=== PATIENT | male | born 1975 | race Two or more races ===

== ENCOUNTER 2024-10-20 16:09 | Emergency (ER) | payer MEDICARE ==
--- NOTE | 2024-10-20 19:07 | ED ---
General Adult HPI - General Chief complaint: Psychiatric Symptoms Stated complaint: Psych Eval Time Seen by Provider: 10/20/24 16:25 Source: patient, RN notes reviewed Mode of arrival: ambulatory Limitations: no limitations - History of Present Illness Initial comments: 48-year-old male presents to the emergency department for medication management. Patient states that he has recently moved to the area and has had difficulty getting his medications. He has been out of some of them for around 1 week. He does note that he has some at the pharmacy but he is unable to afford them. He denies any suicidal ideation. He does report that he has agitated because of being out of his medications. - Related Data Home Medications Medication Instructions Recorded Confirmed Aspirin EC [Ecotrin Low Dose] 81 mg PO DAILY 10/20/24 10/22/24 Rivaroxaban [Xarelto] 20 mg PO DAILY 10/20/24 10/22/24 Atorvastatin [Lipitor] 20 mg PO DAILY 10/22/24 10/22/24 Previous Rx's Medication Instructions Recorded Metoprolol Succinate (ER) [Toprol 25 mg PO DAILY #14 tab 10/20/24 XL] PARoxetine HCL [Paxil] 40 mg PO DAILY #14 tab 10/20/24 lisinopriL [Zestril] 2.5 mg PO DAILY #14 tab 10/20/24 ARIPiprazole [Abilify] 10 mg PO HS 30 Days #30 tab 10/26/24 Nicotine 14Mg/24Hr Patch [Habitrol] 1 patch TRANSDERM DAILY patch 10/26/24 PARoxetine [Paxil] 40 mg PO DAILY 30 Days #60 tab 10/26/24 Pantoprazole [Protonix] 40 mg PO AC-[id number] tab 10/26/24 traZODone HCL [Desyrel] 100 mg PO HS 30 Days #30 tab 10/26/24 Allergies Allergy/AdvReac Type Severity Reaction Status Date / Time No Known Allergies Allergy Verified 10/22/24 13:37 Review of Systems ROS Statement: Those systems with pertinent positive or pertinent negative responses have been documented in the HPI. ROS Other: All systems not noted in ROS Statement are negative. Past Medical History Past Medical History: Hypertension History of Any Multi-Drug Resistant Organisms: None Reported Past Psychological History: ADD/ADHD, Bipolar, Schizoaffective Disorder Smoking Status: Vaper Past Alcohol Use History: None Reported Past Drug Use History: Marijuana General Exam Limitations: no limitations General appearance: alert, in no apparent distress Head exam: Present: atraumatic, normocephalic, normal inspection Eye exam: Present: normal appearance, PERRL, EOMI. Absent: scleral icterus, conjunctival injection, periorbital swelling Neck exam: Present: normal inspection. Absent: tenderness, meningismus, lymphadenopathy Respiratory exam: Present: normal lung sounds bilaterally. Absent: respiratory distress, wheezes, rales, rhonchi, stridor Cardiovascular Exam: Present: regular rate, normal rhythm, normal heart sounds. Absent: systolic murmur, diastolic murmur, rubs, gallop, clicks GI/Abdominal exam: Present: soft. Absent: distended, tenderness, guarding, rebound, rigid Extremities exam: Present: normal inspection, full ROM, normal capillary refill. Absent: tenderness, pedal edema, joint swelling, calf tenderness Neurological exam: Present: alert, oriented X3 Psychiatric exam: Present: normal affect, normal mood Skin exam: Present: warm, dry, intact, normal color. Absent: rash Course Vital Signs 10/20/24 10/20/24 16:14 20:08 Temperature 98.0 F 98.2 F Pulse Rate 83 71 Respiratory 16 17 Rate Blood Pressure 125/79 126/89 O2 Sat by Pulse 97 98 Oximetry Medical Decision Making - Medical Decision Making Was pt. sent in by a medical professional or institution (JULIAN Weber, [employer], urgent care, hospital, or jail...) When possible be specific @ -No Did you speak to anyone other than the patient for history (EMS, parent, family, police, friend...)? What history was obtained from this source @ -No Did you review nursing and triage notes (agree or disagree)? Why? @ -I reviewed and agree with nursing and triage notes Were old charts reviewed (outside hosp., previous admission, EMS record, old EKG, old radiological studies, urgent care reports/EKG's, jail records)? Report findings @ -No old charts were reviewed Differential Diagnosis (chest pain, altered mental status, abdominal pain women, abdominal pain men, vaginal bleeding, weakness, fever, dyspnea, syncope, headache, dizziness, GI bleed, back pain, seizure, CVA, palpatations, mental health, musculoskeletal)? @ -Differential Mental Health Depression, anxiety, bipolar, psychosis, schizophrenia, borderline personality, situational depression, adjustment disorder, behavioral disorder, brain tumor, malingering, substance abuse, encephalopathy, medication reaction, dementia, hypothyroidism, degenerative neurologic disorder, lupus.... This is not meant to be all-inclusive list EKG interpreted by me (3pts min.). @ -None X-rays interpreted by me (1pt min.). @ -None done CT interpreted by me (1pt min.). @ -None done U/S interpreted by me (1pt. min.). @ -None done What testing was considered but not performed or refused? (CT, X-rays, U/S, labs)? Why? @ -None What meds were considered but not given or refused? Why? @ -None Did you discuss the management of the patient with other professionals (professionals i.e. , PA, CLOTH CALENDER, lab, RT, psych nurse, social media community manager, tea and spice supervisor, teacher, occupational medicine officer, watch caser)? Give summary @ -Discussed case with case management regarding efforts to get the patient his medication Discussed case with EPS to evaluate the patient Was smoking cessation discussed for >3mins.? @ -No Was critical care preformed (if so, how long)? @ -No Were there social determinants of health that impacted care today? How? (Homelessness, low income, unemployed, alcoholism, drug addiction, transportation, low edu. Level, literacy, decrease access to med. care, group home, rehab)? @ -No Was there de-escalation of care discussed even if they declined (Discuss DNR or withdrawal of care, Hospice)? DNR status @ -No What co-morbidities impacted this encounter? (DM, HTN, Smoking, COPD, CAD, Cancer, CVA, ARF, Chemo, Hep., AIDS, mental health diagnosis, sleep apnea, morbid obesity)? @ -None Was patient admitted / discharged? Hospital course, mention meds given and route, prescriptions, significant lab abnormalities, going to OR and other pertinent info. @ -Discharge. Patient presents emergency department for medication management. I did send the patient medications to the pharmacy. He was given a dose of some of the psychiatric medications and is Xarelto in the emergency department. Patient was evaluated by EPS and a safety plan was performed. Patient will be discharged. He is understanding agreeable this plan. Patient stable at time of discharge. Case discussed with Dr. Larson Undiagnosed new problem with uncertain prognosis? @ -No Drug Therapy requiring intensive monitoring for toxicity (Heparin, Nitro, Insulin, Cardizem)? @ -No Were any procedures done? @ -No Diagnosis/symptom? @ -Medication management Acute, or Chronic, or Acute on Chronic? @ -Acute Uncomplicated (without systemic symptoms) or Complicated (systemic symptoms)? @ -Uncomplicated Side effects of treatment? @ -No Exacerbation, Progression, or Severe Exacerbation? @ -No Poses a threat to life or bodily function? How? (Chest pain, [place], [place], pneumonia, PE, COPD, DKA, ARF, appy, cholecystitis, CVA, Diverticulitis, Homicidal, Suicidal, threat to staff... and all critical care pts) @ -No Disposition Clinical Impression: Medication management Disposition: HOME SELF-CARE Condition: Stable Additional Instructions: Please follow up with [facility]. Return to the emergency department for new or worsening symptoms. Prescriptions: PARoxetine HCL [Paxil] 40 mg PO DAILY #14 tab Metoprolol Succinate (ER) [Toprol XL] 25 mg PO DAILY #14 tab lisinopriL [Zestril] 2.5 mg PO DAILY #14 tab Is patient prescribed a controlled substance at d/c from ED?: No Referrals: None,Stated [Primary Care Provider] - 1-2 days
[2024-10-20] MEDS: PARoxetine 20 MG TAB PO STA (19:32)
[2024-10-20] MEDS: LORazepam 1 MG TAB PO STA (19:32)
[2024-10-20] MEDS: ATORVASTATIN 20 MG TAB PO STA (19:33)
[2024-10-20 20:14] VITALS: BP 126/89; PULSE 71; RESP 17; TEMP 98.2
== END 2024-10-20 20:14 | disposition home or self-care (01) ==
LOC: EC 16:09
DX: Z76.0 Encounter for issue of repeat prescription (principal); F17.290 Nicotine dependence, other tobacco product, uncomplicated; Z91.141 Patient's other noncompliance with medication regimen due to financial hardship
CPT/HCPCS: 82075; 99284

== ENCOUNTER 2024-10-22 10:58 | Inpatient (IN) | payer MEDICARE ==
--- NOTE | 2024-10-22 11:57 | ED ---
General Adult HPI - General Chief complaint: Psychiatric Symptoms Stated complaint: Mental health Time Seen by Provider: 10/22/24 11:10 Source: patient Mode of arrival: ambulatory Limitations: no limitations - History of Present Illness Initial comments: Dictation was produced using [employer] dictation software. please excuse any grammatical, word or spelling errors. Chief Complaint: 48-year-old male presents emergency department hallucinations History of Present Illness: Patient is 48-year-old male with multiple comorbidities. States that due to insurance issues he has not had a co-pay for his medications. Patient states that he is unable to afford these things. States that he takes psychiatric medications and his hallucinations are getting worse since he did not fill his medications recently. Denies any physical complaints. The ROS documented in this emergency department record has been reviewed and confirmed by me. Those systems with pertinent positive or negative responses have been documented in the HPI. All other systems are other negative and/or noncontributory. - Related Data Home Medications Medication Instructions Recorded Confirmed Aspirin EC [Ecotrin Low Dose] 81 mg PO DAILY 10/20/24 10/22/24 Folic Acid 1 mg PO DAILY 10/20/24 10/22/24 LORazepam [Ativan] 1 mg PO DAILY PRN 10/20/24 10/22/24 Multivitamins, Thera [Multivitamin 1 tab PO DAILY 10/20/24 10/22/24 (formulary)] Rivaroxaban [Xarelto] 20 mg PO DAILY 10/20/24 10/22/24 traZODone HCL [Desyrel] 100 mg PO HS 10/20/24 10/22/24 ARIPiprazole [Abilify] 10 mg PO DAILY 10/22/24 10/22/24 Atorvastatin [Lipitor] 20 mg PO DAILY 10/22/24 10/22/24 Brexpiprazole [Rexulti] 0.5 mg PO DIRECTED 10/22/24 10/22/24 Thiamine HCl [Vitamin B-1] 100 mg PO DAILY 10/22/24 10/22/24 Previous Rx's Medication Instructions Recorded Brexpiprazole [Rexulti] 0.25 mg PO DAILY #14 tablet 10/20/24 Metoprolol Succinate (ER) [Toprol 25 mg PO DAILY #14 tab 10/20/24 Xl] PARoxetine HCL [Paxil] 40 mg PO DAILY #14 tab 10/20/24 lisinopriL [Zestril] 2.5 mg PO DAILY #14 tab 10/20/24 Allergies Allergy/AdvReac Type Severity Reaction Status Date / Time No Known Allergies Allergy Verified 10/22/24 13:37 Review of Systems ROS Statement: Those systems with pertinent positive or pertinent negative responses have been documented in the HPI. ROS Other: All systems not noted in ROS Statement are negative. Past Medical History Past Medical History: Hypertension History of Any Multi-Drug Resistant Organisms: None Reported Past Surgical History: No Surgical Hx Reported Past Psychological History: ADD/ADHD, Bipolar, Schizoaffective Disorder Smoking Status: Vaper Past Alcohol Use History: None Reported Past Drug Use History: Marijuana General Exam - General Exam Comments Initial Comments: General: Well-appearing, nontoxic, no acute distress. Head: Normocephalic, atraumatic Eyes: PERRLA, EOMI ENT: Airway patent Chest: Nonlabored breathing Skin: No visual rash, normal skin tone Neuro: Alert and oriented 3 Musculoskeletal: No gross abnormalities Limitations: no limitations Course Vital Signs 10/22/24 11:03 Temperature 97.9 F Pulse Rate 68 Respiratory 18 Rate Blood Pressure 149/90 O2 Sat by Pulse 100 Oximetry Medical Decision Making - Medical Decision Making Was pt. sent in by a medical professional or institution (JULIAN Weber, [employer], urgent care, hospital, or alf...) When possible be specific @ -No Did you speak to anyone other than the patient for history (EMS, parent, family, police, friend...)? What history was obtained from this source @ -No Did you review nursing and triage notes (agree or disagree)? Why? @ -I reviewed and agree with nursing and triage notes Were old charts reviewed (outside hosp., previous admission, EMS record, old EK G, old radiological studies, urgent care reports/EKG's, alf records)? Report findings @ -No old charts were reviewed Differential Diagnosis (chest pain, altered mental status, abdominal pain women, abdominal pain men, vaginal bleeding, musculoskeletal, weakness, fever, dyspnea, syncope, headache, dizziness, GI bleed, back pain, seizure, CVA, palpatations, mental health)? @ -Differential Mental Health: Depression, anxiety, bipolar, psychosis, schizophrenia, borderline personality, situational depression, adjustment disorder, behavioral disorder, brain tumor, malingering, substance abuse, encephalopathy, medication reaction, dementia, hypothyroidism, degenerative neurologic disorder, lupus.... This is not meant to be all-inclusive list EKG interpreted by me (3pts min.). @ -None done X-rays interpreted by me (1pt min.). @ -None done CT interpreted by me (1pt min.). @ -None done U/S interpreted by me (1pt. min.). @ -None done What testing was considered but not performed or refused? (CT, X-rays, U/S, labs)? Why? @ -None What meds were considered but not given or refused? Why? @ -None Was smoking cessation discussed for >3mins.? @ -No Were there social determinants of health that impacted care today? How? (Homelessness, low income, unemployed, alcoholism, drug addiction, transportation, low edu. Level, literacy, decrease access to med. care, half-way, rehab)? @ -No Was there de-escalation of care discussed even if they declined (Discuss DNR or withdrawal of care, Hospice)? DNR status @ -No What co-morbidities impacted this encounter? (DM, HTN, Smoking, COPD, CAD, Cancer, CVA, ARF, Chemo, Hep., AIDS, mental health diagnosis, sleep apnea, morbid obesity)? @ -None Was patient admitted / discharged? Hospital course, mention meds given and route, prescriptions, significant lab abnormalities, going to OR and other pertinent info. @ -48-year-old male presents emergency department for hallucinations has history of psychiatry history. States that he was unable to take his medications. Vital signs stable. Patient medically cleared for EPS evaluation. EPS evaluate patient will be admitted to inpatient psych Did you discuss the management of the patient with other professionals (professionals i.e. , PA, [employer], lab, RT, psych nurse, protective services social worker, measurement and sensing technician, teacher, jailer/training officer, case fitter)? Give summary @ -See above Was critical care preformed (if so, how long)? @ -No Undiagnosed new problem with uncertain prognosis? @ -No Drug Therapy requiring intensive monitoring for toxicity (Heparin, Nitro, Insulin, Cardizem)? @ -No Were any procedures done? @ -No Diagnosis/symptom? Acute, or Chronic, or Acute on Chronic? Uncomplicated (without systemic symptoms) or Complicated (systemic symptoms)? @ -Hallucinations Side effects of treatment? @ -No Exacerbation, Progression, or Severe Exacerbation? @ -No Poses a threat to life or bodily function? How? (Chest pain, USA, [place], pneumonia, PE, COPD, DKA, ARF, appy, cholecystitis, CVA, Diverticulitis, Homicidal, Suicidal, threat to staff... and all critical care pts) @ -yes Disposition Clinical Impression: Hallucination Disposition: TRANSFER TO PSYCH HOSP/UNIT Condition: Fair Referrals: Sarita De La Torre MD [Primary Care Provider] - 1-2 days
[2024-10-22] MEDS ORDERED: MAG HYDROX/AL HYDROX/SIMETH 355 ML BOTTLE PO PRN (19:37)
[2024-10-22] MEDS ORDERED: ACETAMINOPHEN TAB 325 MG TAB PO PRN (19:37)
[2024-10-22] MEDS ORDERED: HALOPERIDOL LACTATE 5 MG/ML 1 ML VIAL IM PRN (19:37)
[2024-10-22] MEDS: NICOTINE 14MG/24HR PATCH TRANSDERM SCH (19:59)
[2024-10-22] MEDS: METOPROLOL SUCCINATE (ER) 25 MG TAB.ER.24H PO SCH (20:52)
[2024-10-22] MEDS: ASPIRIN 81 MG PO SCH (20:52)
[2024-10-22] MEDS: ATORVASTATIN 20 MG TAB PO SCH (20:53)
[2024-10-22] MEDS: RIVAROXABAN 20 MG TAB PO SCH (20:53)
[2024-10-23] MEDS: THIAMINE 100 MG TAB PO SCH (08:42)
[2024-10-23] MEDS: FOLIC ACID 1 MG TAB PO SCH (08:42)
[2024-10-23] MEDS: MULTIVITAMINS, THERA 1 EACH TAB PO SCH (08:42)
[2024-10-23 09:27] LABS: Basophils # (A) 0.03 10*3/uL (0.00-0.10); Basophils % (A) 0.7 %; Eosinophils # (A) 0.15 10*3/uL (0.04-0.35); Eosinophils % (A) 3.7 %; HCT 44.4 % (39.6-50.0); HGB 14.8 g/dL (13.0-17.0); Immature Platelet Fraction 6.7 % (1.1-6.1); Lymphocytes # (A) 1.14 10*3/uL (0.90-5.00); Lymphocytes % (A) 27.8 %; MCH 34.8 pg (27.0-32.0); MCHC 33.3 g/dL (32.0-37.0); MCV 104.5 fL (80.0-97.0); Monocytes # (A) 0.24 10*3/uL (0.20-1.00); Monocytes % (A) 5.9 %; Neutrophils # (A) 2.54 10*3/uL (1.80-7.70); Neutrophils % (A) 61.9 %; RBC 4.25 10*6/uL (4.40-5.60); RDW 13.8 % (11.5-14.5); WBC 4.10 10*3/uL (4.50-10.00)
[2024-10-23 09:40] LABS: ALT 120 U/L (4-49); AST 153 U/L (17-59); African American GFR (CKD) >90 (>60 ml/min/1.73 sqM); Albumin 4.4 g/dL (3.5-5.0); Alkaline Phosphatase 95 U/L (38-126); Anion Gap 10 mmol/L; Blood Urea Nitrogen 12 mg/dL (9-20); Calcium 9.6 mg/dL (8.4-10.2); Carbon Dioxide 27 mmol/L (22-30); Chloride 105 mmol/L (98-107); Glucose 136 mg/dL (74-99); Non-African American GFR(CKD) >90 (>60 ml/min/1.73 sqM); Potassium 4.6 mmol/L (3.5-5.1); Sodium 142 mmol/L (137-145); Total Protein 8.3 g/dL (6.3-8.2)
[2024-10-23 10:32] LABS: Platelet Count 95 10*3/uL (140-440); RBC Morphology Normal
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
[2024-10-23] MEDS: PANTOPRAZOLE 40 MG TABLET PO SCH (11:01)
[2024-10-23] MEDS: PARoxetine 20 MG TAB PO SCH (11:01)
--- NOTE | 2024-10-23 13:12 | P.MDCNMH ---
History of Present Illness H&P Date: 10/23/24 This is a pleasant 48-year-old male who presented to the emergency department with ER reporting hallucinations. Patient reports he has been having increasing auditory hallucinations while being off of medications. Patient reports he was living in [place] and recently moved up here approximately 1 week ago has an appointment with Dr. Demetrius Fofana to establish although has not seen her previously yet. Patient reports he had his medications transferred up here to a [facility] and the co-pays were extremely high and unable to afford. Patient reports he has a past medical history of factor V Leyden deficiency, hypertension, previous DVTs, ADD/ADHD, bipolar, schizoaffective disorder. Patient reports to vaping with tobacco, denies alcohol use and does admit to previous use of marijuana. Reviewing the chart patient's labs reveal a WBC of 4.1, hemoglobin 14.8, platelets low at 95, immature platelet fraction is 6.7 which is elevated, sodium 142, potassium 4.6, BUN 12 with a creatinine of 0.84, random glucose is 136, total bili is 1.4, AST 153, ALT 120, alk phos normal at 95, cholesterol panel was obtained and pending, TSH was low at 0.054 although free T4 is normal at 0.98, COVID testing was not detected. Patient was admitted voluntarily to [facility] for further psychiatric evaluation. Patient to work with case management regarding medications and [facility] follow-up outpatient. Patient reports he has been with [facility] his entire life since he was 3 years old. Patient reports he has been seeing by psychiatry and has been started on medications. Will resume appropriate home medications. Patient does take Xarelto along with aspirin chronically. REVIEW OF SYSTEMS: CONSTITUTIONAL: No fever, no malaise, no fatigue. HEENT: No recent visual problems or hearing problems. Denied any sore throat. CARDIOVASCULAR: No chest pain, orthopnea, PND, no palpitations, no syncope. PULMONARY: No shortness of breath, no cough, no hemoptysis. GASTROINTESTINAL: No diarrhea, no nausea, no vomiting, no abdominal pain. NEUROLOGICAL: No headaches, no weakness, no numbness. HEMATOLOGICAL: Denies any bleeding or petechiae. GENITOURINARY: Denies any burning micturition, frequency, or urgency. MUSCULOSKELETAL/RHEUMATOLOGICAL: Denies any joint pain, swelling, or any muscle pain. ENDOCRINE: Denies any polyuria or polydipsia. The rest of the 14-point review of systems is negative. PHYSICAL EXAMINATION: GENERAL: The patient is alert and oriented x3, not in any acute distress. Well developed, well nourished. HEENT: Pupils are round and equally reacting to light. EOMI. No scleral icterus. No conjunctival pallor. Normocephalic, atraumatic. No pharyngeal erythema. No thyromegaly. CARDIOVASCULAR: S1 and S2 present. No murmurs, rubs, or gallops. PULMONARY: Chest is clear to auscultation, no wheezing or crackles. ABDOMEN: Soft, thin, nontender, nondistended, normoactive bowel sounds. No palpable organomegaly. MUSCULOSKELETAL: No joint swelling or deformity. EXTREMITIES: No cyanosis, clubbing, or pedal edema. NEUROLOGICAL: Gross neurological examination did not reveal any focal deficits. Gait steady on exam SKIN: No rashes. Assessment: Auditory hallucinations, patient has been out of medications due to high cost of co-pays and recently moved from [place] to [place] History of factor V Leyden deficiency History of previous DVTs Hypertension Vaping with tobacco THC use History of ADD/ADHD/bipolar/schizoaffective disorder Transaminitis, patient reports history of alcohol abuse Full code Plan: Patient was voluntarily admitted to [facility] for hallucinations and has been out of medication follows with [facility] outpatient although was living in [place] and recently moved up here to [place] 1 week ago. Patient does have a follow-up appointment he reports with Dr. Demetrius Fofana to establish in the outpatient setting. Patient to follow-up with case management regarding co-pays for medications as he had his medications transferred to [facility] here although the co-pays were too much for him to afford to get his medications. Patient has been out of his medications for approximately 1 week Instructed and encouraged the patient to attend group therapy sessions Recommend medication compliance and follow-up with psychiatry Thank you kindly for this consultation. Please do not hesitate to contact us with any questions or concerns The impression and plan of care has been dictated by Jane Haro, Nurse Practitioner as directed. Dr. Lisha MD I have performed a history and examination and MDM of this patient, discussed the same with the dictator, and agree with the dictator's assessment and plan as written ,documented as a scribe. Based on total visit time, I have performed more than 50% of the visit. Past Medical History Past Medical History: Deep Vein Thrombosis (DVT), Hypertension Additional Past Medical History / Comment(s): Positive Factor 5 Leiden History of Any Multi-Drug Resistant Organisms: None Reported Past Surgical History: No Surgical Hx Reported Past Psychological History: ADD/ADHD, Bipolar, Schizoaffective Disorder Smoking Status: Current every day smoker, Vaper Past Alcohol Use History: None Reported Past Drug Use History: None Reported, Marijuana Medications and Allergies Home Medications Medication Instructions Recorded Confirmed Type Aspirin EC [Ecotrin Low Dose] 81 mg PO DAILY 10/20/24 10/22/24 History Brexpiprazole [Rexulti] 0.25 mg PO DAILY #14 tablet 10/20/24 10/22/24 Rx Folic Acid 1 mg PO DAILY 10/20/24 10/22/24 History LORazepam [Ativan] 1 mg PO DAILY PRN 10/20/24 10/22/24 History Metoprolol Succinate (ER) [Toprol 25 mg PO DAILY #14 tab 10/20/24 10/22/24 Rx Xl] Multivitamins, Thera [Multivitamin 1 tab PO DAILY 10/20/24 10/22/24 History (formulary)] PARoxetine HCL [Paxil] 40 mg PO DAILY #14 tab 10/20/24 10/22/24 Rx Rivaroxaban [Xarelto] 20 mg PO DAILY 10/20/24 10/22/24 History lisinopriL [Zestril] 2.5 mg PO DAILY #14 tab 10/20/24 10/22/24 Rx traZODone HCL [Desyrel] 100 mg PO HS 10/20/24 10/22/24 History ARIPiprazole [Abilify] 10 mg PO DAILY 10/22/24 10/22/24 History Atorvastatin [Lipitor] 20 mg PO DAILY 10/22/24 10/22/24 History Brexpiprazole [Rexulti] 0.5 mg PO DIRECTED 10/22/24 10/22/24 History Thiamine HCl [Vitamin B-1] 100 mg PO DAILY 10/22/24 10/22/24 History Allergies Allergy/AdvReac Type Severity Reaction Status Date / Time No Known Allergies Allergy Verified 10/22/24 13:37 Physical Exam Vitals: Vital Signs Temp Pulse Pulse Resp BP BP Pulse Ox 10/23/24 09:03 97.2 F L 62 20 114/75 98 10/23/24 06:20 97.2 F L 50 L 18 116/78 98 10/22/24 20:01 98.0 F 70 18 115/79 98 10/22/24 16:12 71 20 112/72 97 10/22/24 11:03 97.9 F 68 18 149/90 100 Intake and Output 10/22/24 10/23/24 10/23/24 22:59 06:59 14:59 Other: Weight 82.6 kg Cranial Nerve Examination - Cranial Nerves Cranial Nerve I- Olfactory: Intact Cranial Nerve II- Optic: Intact Cranial Nerve III- Oculomotor: Intact Cranial Nerve IV- Trochlear: Intact Cranial Nerve V- Trigeminal: Intact Cranial Nerve - Abducens: Intact Cranial Nerve VII- Facial: Intact Cranial Nerve VIII- Auditory: Intact Cranial Nerve IX- Glossopharyngeal: Intact Cranial Nerve X- Vagus: Intact Cranial Nerve XI- Accessory: Intact Cranial Nerve XII- Hypoglossal: Intact Results CBC & Chem 7: 10/23/24 08:26 10/23/24 08:26 Labs: Abnormal Lab Results - Last 24 Hours (Table) 10/23/24 10/23/24 Range/Units 08:26 08:26 WBC 4.10 L (4.50-10.00) 10*3/uL RBC 4.25 L (4.40-5.60) 10*6/uL MCV 104.5 H (80.0-97.0) fL MCH 34.8 H (27.0-32.0) pg Plt Count 95 L (140-440) 10*3/uL Immature Plt Fraction 6.7 H (1.1-6.1) % Glucose 136 H (74-99) mg/dL Total Bilirubin 1.4 H (0.2-1.3) mg/dL AST 153 H (17-59) U/L ALT 120 H (4-49) U/L Total Protein 8.3 H (6.3-8.2) g/dL TSH 0.054 L (0.465-4.680) mIU/L
[2024-10-23 13:35] LABS: Cholesterol 141.00 mg/dL (0.00-200.00); HDL Cholesterol 41.60 mg/dL (40.00-60.00); LDL Cholesterol,Calculated 75.6 mg/dL (0.0-131.0); Triglycerides 119.00 mg/dL (0.00-149.00); VLDL Calculation 23.80 mg/dL (5.00-40.00)
[2024-10-24] MEDS: LORazepam 1 MG TAB PO PRN (08:53)
[2024-10-24 09:11] LABS: Bilirubin,Urine Negative (Negative); Blood,Urine Negative (Negative); Color,Urine Yellow; Glucose,Urine (UA) Negative (Negative); Ketones,Urine Negative (Negative); Leukocyte Esterase,Urine Negative (Negative); Nitrite,Urine Negative (Negative); PH, Urine 6.0 (5.0-8.0); Protein,Urine Negative (Negative); Specific Gravity,Urine 1.021 (1.001-1.035); Urobilinogen,Urine 2.0 mg/dL (<2.0)
[2024-10-24 13:16] LABS: Urine Alcohol Negative (Negative); Urine Barbiturate Negative (Negative)
--- NOTE | 2024-10-24 13:29 | P.PN ---
Progress Note - Text Progress Note Date: 10/24/24 Dictation was produced using [employer] dictation software. Please excuse any grammatical, word or spelling errors. Interval history: Patient was seen in the hallway and was directable and agreeable to speak with the software writer in the office for psychiatric follow-up. The patient states that he is feeling anxious and the voices are higher than usual, states it is like a whispers of his mom voice. He rated anxiety at 7/10. He denied any current depression. He reported that his mind is racing, and is anxious about being in a new town. He denied and current SI/HI or self harm. He denied any VH. States that he slept well last night, it is reported that he slept through the night and admitted to good appetite. He has been taking his medications, denied any current side effects. He denied any stiffness, rigidity, abnormal movement, or drooling. He reported feeling safe in the unit. Pt states that he does not want to be on Depakote or Li and elaborated that he does not want any medication that needs blood work. He states that he took as needed medication and was able to help with his anxiety. He has no other concern at this time. Mental status exam: General Appearance: Patient appears to be stated age is alert, directable, and attempts to cooperate. Patient appears to have fair hygiene and grooming. Behavior: Patient is seated without any agitated behavior. Speech: Patient's speech is fluent and nonpressured. Mood/Affect: Patient reports their mood is "anxious", affect is congruent and constricted. Suicidality/Homicidality: Patient denies having any homicidal ideation intent or plan. Denies any suicidal ideations intent or plan Perceptions: Patient denies any visual hallucinations and admitted to having auditory hallucinations, whispers of his mother voice Though content/process: There is no evidence of any delusional thought content and thought process is linear and goal-directed. Memory and concentration: AOX3, grossly intact for the purposes of this session. Judgment and insight: fair Impression: -Schizophrenia spectrum with other unspecified psychotic disorder -Rule out bipolar disorder with psychotic feature -Rule out schizoaffective disorder - Cannabis use disorder - Nicotine use disorder Assessment/Plan: -Patient continues to meet criteria for inpatient psychiatric admission for symptom stabilization and safety. Patient was admitted under voluntary status to [facility] for stabilization of psychiatric symptoms and safety. -Medications : - Continue Abilify 10 mg p.o. at bedtime - Continue Paxil 40 mg p.o. daily - Continue trazodone 100 mg p.o. at bedtime as needed -We will hold Rexulti 0.25 mg till we get records from outpatient to avoid being and do an antipsychotic, to avoid any side effects -Patient reported that he does not consider adding a mood stabilizer like lithium or Depakote, education was provided -Ativan and Haldol PRN for agitation/aggression -Psychoeducation was provided, risk, benefit and side effect discussed -Monitor for medication compliance and for any psychotropic medication side effects, patient denies any current side effects, denied any muscle stiffness, rigidity, abnormal movement, or drooling. Will continue to monitor ongoing response to treatment. Encouraged participation in milieu. -SW on board for discharge planning. Encourage patient to participate in groups to work on coping skills. Collateral will be helpful from his previous outpatient services through [facility] in [facility]
[2024-10-24 22:25] VITALS: RESP 16
[2024-10-25 10:38] VITALS: TEMP 97.8
--- NOTE | 2024-10-25 11:55 | P.PN ---
Progress Note - Text Progress Note Date: 10/25/24 Interval History: Patient was seen wandering the hallways and was directable and agreeable to sp yun with display card writer in the office. He expressed no concerns, states feeling well. He states he recently moved to this location from [facility] as he has more family and support in this area. He states once he switched pharmacies to this area, he had a $300 co-pay that he was unable to afford despite no changes in insurance per patient. He states PRNs have been effective, sleeping and eating well. He states he lives alone. At this time patient denies any suicidal or homicidal ideations, intent or plan. Patient denies any auditory, visual hallucinations and denies any paranoia or delusions. Patient denies any side effects from the medications and has been compliant with meds. Mental Status Exam: General Appearance: Patient appears to be stated age is alert, directable, and cooperative. He has fair grooming and hygiene Behavior: Patient is calmly seated without any agitated behavior. Speech: Patient's speech is fluent and nonpressured. Mood/Affect: Mood is improving mildly, affect is congruent and constricted. Suicidality/Homicidality: Patient denies having any suicidal or homicidal ideation intent or plan. Perceptions: Patient denies any visual hallucinations and denies any auditory hallucinations Though content/process: There is no evidence of any delusional thought content and thought process is linear and goal-directed. Memory and concentration: AOX3, grossly intact for the purposes of this session Judgment and insight: Improving mildly Assessment Schizoaffective disorder, bipolar type Cannabis use disorder Nicotine dependence Plan: -Patient continues to meet criteria for inpatient psychiatric admission for symptom stabilization and safety. Patient has signed adult voluntary form and medication consent and was placed in patient's chart. -Medications: Continue Abilify 10 mg at bedtime for mood stabilization, Paxil 40 mg daily for depression, trazodone 100 mg at bedtime as needed for insomnia -When necessary Ativan and Haldol for agitation/aggression. -Labs: LFTs were mildly elevated, TSH was low however free T4 was WNL -NRT - nicotine patch -SW on board for discharge planning. Encouraged the patient to participate in milieu. Anticipate discharge home alone tomorrow.
[2024-10-26 11:26] VITALS: BP 118/85; PULSE 113
--- NOTE | 2024-10-26 13:08 | P.DS ---
Providers Date of admission: 10/22/24 17:06 Expected date of discharge: 10/26/24 Attending physician: Katharine Michaels MD Consults: 10/22/24 19:37 Consult Physician Routine Consulting Provider: [facility] Consult Reason/Comments: history and physical/medical management Do you want consulting provider notified?: Yes Primary care physician: Sarita De La Torre - Discharge Diagnosis(es) (1) Schizoaffective disorder, bipolar type Current Visit: Yes Status: Acute Priority: High (2) Cannabis use disorder Current Visit: Yes Status: Acute Priority: Low (3) Nicotine dependence Current Visit: Yes Status: Acute Priority: Low Hospital Course: Admission HPI: Admission note was completed by Dr. Lizarraga "Patient presented to the hospital for hallucination, he has been dealing with multiple comorbidities including difficulties with his insurance and has not been able to get his medications since he could not afford the copayment. Reported that he has hallucination has been getting worse since he could not fill his medication recently. The patient presented to the ED couple of days ago, safety plan was in place and has medication sent to the pharmacy however he could not get it due to insurance reasons. Per ED note patient is A/O x 4 anxious, patient states that he just moved here 1 week ago from [facility]. He has a PCP appointment on Friday, Friday he is scheduled for an intake with [facility]. Patient reported frustration related to his insurance charging co-pay for medication which he never had before. Reported that he has been having ongoing auditory hallucination, denied being commanding in nature. CL reported they have not slept in 4 days and the auditory hallucination are increasing due to not being able to get their medication. CL also claims SI with no plan and the thoughts are increasing due to not able to take his medication. He states " I know myself well and I know how I can get when my symptoms started to get worse, I can be impulsive, and I am worried about hurting myself or others, I do not want to do that, I just need my medication so I can avoid all of that." CL claims to being a was the [employer], not benefits due to genital discharge on disability. Claims that he has been sober from alcohol and drugs for more than 10 years. Upon evaluation in the unit the patient was in his room, agreed to speak with the principal technical writer in the room. He states that he just moved to [place] last week from [place] since his family is here, states that he switched his medical care to her, and he states that he has been having difficulties with getting his medication however he could not afford the co-pay. States that his mood is "fine." He denied feeling any depression, denied being sad, depressed or down,states that his sleep is on and off, and he has was treated for insomnia in the past, states that "all I need is 3 hours and then I'm good." Claims good appetite. Denied any current SI/HI or self harm, states that he has a history of suicide via OD years ago. States that he was with no sleep for 4 days, few weeks, admitted to racing thoughts, flights of idea, admitted to goal directed activity at time, states that he did not have any recent manic episode since he moved to . States that he has been hearing voices for the last 3 days, states that it was started when he was a child, states that it is voices of his mom, asking her to go live with her, she . Denied any VH. Reported that he can be paranoid at time. Patient admits to using vaping, states that he smoke week daily, and denied using any alcohol or illicit substances. " Hospital course: Upon admission to the unit patient was directable and agreeable to commence treatment and signed adult voluntary form. Patient got along well with other patients on the unit and followed unit protocol. Patient was compliant with the medications and denied any side effects throughout hospital course. Patient was started on Abilify 10 mg at bedtime for mood stabilization, Paxil 40 mg daily for depression, trazodone 100 mg at bedtime for insomnia. Patient spoke of his stressors and engaged in therapy both group and individual. Patient was also seen by medical team for history and physical exam. Throughout the course of the hospitalization patient gradually improved with regards to mood, anxiety, sleep and returned back to their baseline level of functioning. On the day of discharge patient denied any suicidal or homicidal ideations intent or plan denied any auditory or visual hallucinations. The patient denied any access to guns or weapons. Patient denied any paranoia and did not endorse any delusions. Patient does not have a significant history of substance abuse and was counseled on abstaining from all substances including alcohol and marijuana. Patient was also counseled on the medications and need for regular compliance and was encouraged to follow-up with their outpatient appointment for mental health and also for primary care. Patient to be discharged home alone and will follow-up with [facility] Mental status exam: General Appearance: Patient appears to be stated age is alert, pleasant, and cooperative. Patient is in no acute distress and has improved hygiene and grooming Behavior: Patient is calmly seated without any agitated behavior. Speech: Patient's speech is fluent and nonpressured. Mood/Affect: Patient reports their mood is "better", affect is congruent and euthymic. Suicidality/Homicidality: Patient denies having any suicidal or homicidal ideation intent or plan. Perceptions: Patient denies any auditory or visual hallucinations. Though content/process: There is no evidence of any delusional thought content and thought process is linear and goal-directed. Memory and concentration: AOX3, grossly intact for the purposes of this session. Can spell "WORLD" backwards correctly. Judgment and insight: Fair Impression: Schizoaffective disorder, bipolar type Cannabis use disorder Nicotine dependence Plan: -Continue with discharge today as patient has improved and stabilized psychiatrically and is not currently an imminent threat to themself and/or others. -Continue medications: Abilify 10 mg at bedtime, Paxil 40 mg daily, trazodone 100 mg at bedtime -Patient was counseled on the need for medication compliance and appropriate follow-up at mental health and also primary care for medical issues. Patient verbalized understanding and agreed. -Social work to help coordinate patients discharge today. also to ensure safe home environment that guns/weapons are either removed from the home or locked away. Social work also to arrange for patients follow up appointments with [facility] for psychiatric care along with follow up with primary care provider. -Patient counseled on abstaining from recreational drugs and marijuana and alcohol. Was informed/educated on the adverse effects on their physical and mental health. Patient verbally agreed and understood. -Patient was instructed to return to the hospital or seek immediate medical care if their psychiatric or medical symptoms do worsen or reoccur. Abnormal Labs 10/23/24 10/23/24 10/24/24 08:26 08:26 09:00 WBC 4.10 L RBC 4.25 L MCV 104.5 H MCH 34.8 H Plt Count 95 L Immature Plt Fraction 6.7 H Glucose 136 H Total Bilirubin 1.4 H AST 153 H ALT 120 H Total Protein 8.3 H TSH 0.054 L U Benzodiazepines Scrn Positive A U Cannabinoids Screen Positive A Allergies Allergy/AdvReac Type Severity Reaction Status Date / Time No Known Allergies Allergy Verified 10/22/24 13:37 Vital Signs Temp 97.8 F 10/25/24 09:00 Pulse 113 H 10/26/24 09:00 Resp 16 10/26/24 09:00 BP 118/85 10/26/24 09:00 Pulse Ox 100 10/25/24 09:00 FiO2 Patient Condition at Discharge: Stable Plan - Discharge Summary Discharge Rx Participant: Yes New Discharge Prescriptions: New ARIPiprazole [Abilify] 10 mg PO HS 30 Days #30 tab Nicotine 14Mg/24Hr Patch [Habitrol] 1 patch TRANSDERM DAILY patch PARoxetine [Paxil] 40 mg PO DAILY 30 Days #60 tab Pantoprazole [Protonix] 40 mg PO AC-BRKFST tab Continue Rivaroxaban [Xarelto] 20 mg PO DAILY lisinopriL [Zestril] 2.5 mg PO DAILY #14 tab Atorvastatin [Lipitor] 20 mg PO DAILY traZODone HCL [Desyrel] 100 mg PO HS 30 Days #30 tab Aspirin EC [Ecotrin Low Dose] 81 mg PO DAILY PARoxetine HCL [Paxil] 40 mg PO DAILY #14 tab Metoprolol Succinate (ER) [Toprol XL] 25 mg PO DAILY #14 tab Discontinued Multivitamins, Thera [Multivitamin (formulary)] 1 tab PO DAILY Brexpiprazole [Rexulti] 0.5 mg PO DIRECTED Folic Acid 1 mg PO DAILY LORazepam [Ativan] 1 mg PO DAILY PRN PRN Reason: Anxiety Brexpiprazole [Rexulti] 0.25 mg PO DAILY #14 tablet ARIPiprazole [Abilify] 10 mg PO DAILY Thiamine HCl [Vitamin B-1] 100 mg PO DAILY Discharge Medication List Aspirin EC [Ecotrin Low Dose] 81 mg PO DAILY 10/20/24 [History] Metoprolol Succinate (ER) [Toprol XL] 25 mg PO DAILY #14 tab 10/20/24 [Rx] PARoxetine HCL [Paxil] 40 mg PO DAILY #14 tab 10/20/24 [Rx] Rivaroxaban [Xarelto] 20 mg PO DAILY 10/20/24 [History] lisinopriL [Zestril] 2.5 mg PO DAILY #14 tab 10/20/24 [Rx] Atorvastatin [Lipitor] 20 mg PO DAILY 10/22/24 [History] ARIPiprazole [Abilify] 10 mg PO HS 30 Days #30 tab 10/26/24 [Rx] Nicotine 14Mg/24Hr Patch [Habitrol] 1 patch TRANSDERM DAILY patch 10/26/24 [Rx] PARoxetine [Paxil] 40 mg PO DAILY 30 Days #60 tab 10/26/24 [Rx] Pantoprazole [Protonix] 40 mg PO AC-BRKFST tab 10/26/24 [Rx] traZODone HCL [Desyrel] 100 mg PO HS 30 Days #30 tab 10/26/24 [Rx] Follow up Appointment(s)/Referral(s): [facility] [Outside] - 10/27/24 9:30 am (10-27-24 at 9:30 with [place] ) Sarita De La Torre MD [Primary Care Provider] - 1-2 days Patient Instructions/Handouts: Schizoaffective Disorder (DC), Cannabis Abuse (DC) Activity/Diet/Wound Care/Special Instructions: [facility] Discharge Info Avoid the use of street drugs and alcohol. Take all medications as prescribed. When you are in need of refills on your medications, please contact your outpatient medical provider and/or outpatient psychiatrist. Please go to your scheduled outpatient appointments for aftercare treatment. If symptoms return or become worse, call the crisis line at or and/or visit the nearest emergency room for assistance. National Suicide and Crisis Lifeline - call or text 566.Medical physician recommends to follow up outpatient in 4-6 weeks to have thyroid levels checked again. Recommendations to have an EMG outpatient on bilateral upper extremities for probable bilateral carpal tunnel. Discharge Disposition: HOME SELF-CARE
== END 2024-10-26 11:37 | disposition home or self-care (01) | DRG 885 ==
LOC: EC 10:58 → 3MHU 17:06
PROVIDERS: ADMIT Psychiatry & Neurology Psychiatry; ATTEND Psychiatry & Neurology Psychiatry
DX: F25.0 Schizoaffective disorder, bipolar type (principal); R45.851 Suicidal ideations; I10 Essential (primary) hypertension; F12.10 Cannabis abuse, uncomplicated; D68.51 Activated protein C resistance; F43.10 Post-traumatic stress disorder, unspecified; F90.9 Attention-deficit hyperactivity disorder, unspecified type; G47.00 Insomnia, unspecified; Z79.01 Long term (current) use of anticoagulants; F41.9 Anxiety disorder, unspecified; F17.200 Nicotine dependence, unspecified, uncomplicated; Z79.82 Long term (current) use of aspirin; Z79.899 Other long term (current) drug therapy; Z86.718 Personal history of other venous thrombosis and embolism
CPT/HCPCS: 80053; 80061; 80306; 81003; 82075; 83036; 84439; 84443; 85025; 87635; 99285

== ENCOUNTER 2024-10-28 19:52 | Emergency (ER) | payer MEDICARE ==
--- NOTE | 2024-10-28 20:50 | US ---
EXAMINATION TYPE: US venous doppler duplex LE LT DATE OF EXAM: 10/28/2024 8:35 PM COMPARISON: NONE CLINICAL INDICATION: Male, 48 years old with history of Swelling; swelling in leg, hx of dvt. on thin ners currently TECHNIQUE: The lower extremity deep venous system is examined utilizing real time linear array sonog robb with graded compression, doppler sonography and color-flow sonography. Grayscale, color doppler , spectral doppler imaging performed of the deep veins of the lower extremities FINDINGS: SIDE PERFORMED: Left VESSELS IMAGED: Common Femoral Vein Deep Femoral Vein Greater Saphenous Vein * Femoral Vein Popliteal Vein Small Saphenous Vein * Proximal Calf Veins (* superficial vessels) Left Leg: Negative for DVT; There is normal flow, compressibility, vascular waveforms. IMPRESSION: No evidence for deep vein thrombosis. [facility], , 10/28/2024 8:48 PM
[2024-10-28] MEDS: SODIUM CHLORIDE 0.9% 1,000 ML IV ONE (22:24)
[2024-10-28] MEDS: ACETAMINOPHEN TAB 325 MG TAB PO STA (22:27)
[2024-10-28] MEDS: ONDANSETRON 4 MG/2 ML VIAL IVP STA (22:33)
--- NOTE | 2024-10-29 00:16 | ED ---
Extremity Problem HPI - General Chief complaint: Extremity Problem,Nontraumatic Stated complaint: Leg swelling Time Seen by Provider: 10/28/24 21:02 Source: patient Mode of arrival: ambulatory Limitations: no limitations - History of Present Illness Initial comments: 48-year-old male presenting with chief complaint of left leg pain and swelling. Ongoing since earlier today. States that he has varicose veins and normally spends a large amount of time on his feet. He is having no chest pain or difficulty breathing. No numbness or tingling. Has been feeling better since he has been elevating the leg. States that he does have history of DVT. He is also having some nausea and a headache. Admits to some dizziness. No vomiting. No vision or hearing changes. No abdominal pain. - Related Data Home Medications Medication Instructions Recorded Confirmed Aspirin EC [Ecotrin Low Dose] 81 mg PO DAILY 10/20/24 10/22/24 Rivaroxaban [Xarelto] 20 mg PO DAILY 10/20/24 10/22/24 Atorvastatin [Lipitor] 20 mg PO DAILY 10/22/24 10/22/24 Previous Rx's Medication Instructions Recorded Metoprolol Succinate (ER) [Toprol 25 mg PO DAILY #14 tab 10/20/24 XL] PARoxetine HCL [Paxil] 40 mg PO DAILY #14 tab 10/20/24 lisinopriL [Zestril] 2.5 mg PO DAILY #14 tab 10/20/24 ARIPiprazole [Abilify] 10 mg PO HS 30 Days #30 tab 10/26/24 Nicotine 14Mg/24Hr Patch [Habitrol] 1 patch TRANSDERM DAILY patch 10/26/24 PARoxetine [Paxil] 40 mg PO DAILY 30 Days #60 tab 10/26/24 Pantoprazole [Protonix] 40 mg PO AC-BRKFST tab 10/26/24 traZODone HCL [Desyrel] 100 mg PO HS 30 Days #30 tab 10/26/24 Allergies Allergy/AdvReac Type Severity Reaction Status Date / Time No Known Allergies Allergy Verified 10/28/24 20:13 Review of Systems ROS Statement: Those systems with pertinent positive or pertinent negative responses have been documented in the HPI. ROS Other: All systems not noted in ROS Statement are negative. Past Medical History Past Medical History: Deep Vein Thrombosis (DVT), Hypertension Additional Past Medical History / Comment(s): Positive Factor 5 Leiden History of Any Multi-Drug Resistant Organisms: None Reported Past Surgical History: No Surgical Hx Reported Past Psychological History: ADD/ADHD, Bipolar, Schizoaffective Disorder Smoking Status: Current every day smoker, Vaper Past Alcohol Use History: None Reported Past Drug Use History: None Reported, Marijuana General Exam Limitations: no limitations General appearance: alert, in no apparent distress Head exam: Present: atraumatic, normocephalic, normal inspection Eye exam: Present: normal appearance, EOMI. Absent: periorbital swelling Neck exam: Present: normal inspection. Absent: meningismus Respiratory exam: Absent: respiratory distress Cardiovascular Exam: Present: regular rate Extremities exam: Present: normal inspection, full ROM, normal capillary refill. Absent: tenderness, pedal edema Neurological exam: Present: alert, oriented X3 Psychiatric exam: Present: normal affect, normal mood Skin exam: Present: warm, dry, normal color Course Vital Signs 10/28/24 10/28/24 10/29/24 20:09 22:30 01:40 Temperature 98.7 F Pulse Rate 73 63 61 Respiratory 15 18 18 Rate Blood Pressure 135/92 122/76 129/83 O2 Sat by Pulse 99 98 98 Oximetry 10/29/24 02:06 Temperature 97.5 F L Pulse Rate 66 Respiratory 16 Rate Blood Pressure 137/80 O2 Sat by Pulse 98 Oximetry Medical Decision Making - Medical Decision Making Was pt. sent in by a medical professional or institution (JULIAN Weber, PRESSING DEPARTMENT SUPERVISOR, urgent care, hospital, or retirement...) When possible be specific @ -No Did you speak to anyone other than the patient for history (EMS, parent, family, police, friend...)? What history was obtained from this source @ -No Did you review nursing and triage notes (agree or disagree)? Why? @ -I reviewed and agree with nursing and triage notes Were old charts reviewed (outside hosp., previous admission, EMS record, old EKG, old radiological studies, urgent care reports/EKG's, retirement records)? Report findings @ -No old charts were reviewed Differential Diagnosis (chest pain, altered mental status, abdominal pain women, abdominal pain men, vaginal bleeding, weakness, fever, dyspnea, syncope, headache, dizziness, GI bleed, back pain, seizure, CVA, palpatations, mental health, musculoskeletal)? @ -Differential Musculoskeletal Muscular strain, contusion, ligament sprain, fracture, arthritis, septic arthritis, bursitis, cellulitis, muscle spasm, nerve compression, DVT, arterial occlusion, herpes zoster, electrolyte abnormality, tumor.... This is not meant to be in all inclusive list EKG interpreted by me (3pts min.). @ -As above X-rays interpreted by me (1pt min.). @ -None done CT interpreted by me (1pt min.). @ -No acute process seen on CT of the brain without contrast or CT angiogram of the head U/S interpreted by me (1pt. min.). @ -Ultrasound negative for DVT What testing was considered but not performed or refused? (CT, X-rays, U/S, labs)? Why? @ -None What meds were considered but not given or refused? Why? @ -None Did you discuss the management of the patient with other professionals (professionals i.e. , PA, PRESSING DEPARTMENT SUPERVISOR, lab, RT, psych nurse, social sciences instructor, particle board supervisor, teacher, disability hearing officer, case management director)? Give summary @ -No Was smoking cessation discussed for >3mins.? @ -No Was critical care preformed (if so, how long)? @ -No Were there social determinants of health that impacted care today? How? (Homelessness, low income, unemployed, alcoholism, drug addiction, transportation, low edu. Level, literacy, decrease access to med. care, senior care, rehab)? @ -No Was there de-escalation of care discussed even if they declined (Discuss DNR or withdrawal of care, Hospice)? DNR status @ -No What co-morbidities impacted this encounter? (DM, HTN, Smoking, COPD, CAD, Cancer, CVA, ARF, Chemo, Hep., AIDS, mental health diagnosis, sleep apnea, morbid obesity)? @ -None Was patient admitted / discharged? Hospital course, mention meds given and route, prescriptions, significant lab abnormalities, going to OR and other pertinent info. @ -48-year-old male presenting with chief complaint of left leg pain and swelling. Ultrasound negative for DVT. Patient later then complains of a mild headache and nausea. He is given pain medication on reassessment reports the pain has not changed. He then tells me that he does have a history of a brain aneurysm. CT and CTA were obtained which showed no acute process. Patient feels well. No signs of distress. Educated on today's findings. Follow-up w ith PCP. Report back to ER with any new or worsening symptoms. Discussed return parameters and answered all questions. Patient conveyed verbal understanding and agreed to the plan. I discussed this case in detail with my attending Dr. Bain Undiagnosed new problem with uncertain prognosis? @ -No Drug Therapy requiring intensive monitoring for toxicity (Heparin, Nitro, Insulin, Cardizem)? @ -No Were any procedures done? @ -No Diagnosis/symptom? @ -Leg swelling, headache Acute, or Chronic, or Acute on Chronic? @ -Acute Uncomplicated (without systemic symptoms) or Complicated (systemic symptoms)? @ -Uncomplicated Side effects of treatment? @ -No Exacerbation, Progression, or Severe Exacerbation? @ -No Poses a threat to life or bodily function? How? (Chest pain, USA, CT, pneumonia, PE, COPD, DKA, AR F, appy, cholecystitis, CVA, Diverticulitis, Homicidal, Suicidal, threat to staff... and all critical care pts) @ -Unlikely - Lab Data Result diagrams: 10/29/24 00:54 10/29/24 00:54 Lab Results 10/29/24 10/29/24 Range/Units 00:54 00:54 WBC 4.07 L (4.50-10.00) 10*3/uL RBC 3.38 L (4.40-5.60) 10*6/uL Hgb 12.0 L (13.0-17.0) g/dL Hct 34.2 L (39.6-50.0) % MCV 101.2 H (80.0-97.0) fL MCH 35.5 H (27.0-32.0) pg MCHC 35.1 (32.0-37.0) g/dL Plt Count 66 L (140-440) 10*3/uL MPV 11.4 (9.5-12.2) fL Immature Gran % (Auto) 0 % Neutrophils % 43.5 % Lymphocytes % 42.5 % Monocytes % 10.8 % Eosinophils % 2.7 % Basophils % 0.5 % Immature Gran # 0.00 (0.00-0.04) 10*3/uL Neutrophils # 1.77 L (1.80-7.70) 10*3/uL Lymphocytes # 1.73 (0.90-5.00) 10*3/uL Monocytes # 0.44 (0.20-1.00) 10*3/uL Eosinophils # 0.11 (0.04-0.35) 10*3/uL Basophils # 0.02 (0.00-0.10) 10*3/uL Manual Slide Review Performed Sodium 134 L (137-145) mmol/L Potassium 4.3 (3.5-5.1) mmol/L Chloride 103 (98-107) mmol/L Carbon Dioxide 26 (22-30) mmol/L Anion Gap 5 mmol/L BUN 14 (9-20) mg/dL Creatinine 0.87 (0.66-1.25) mg/dL Est GFR (CKD-EPI)AfAm >90 (>60 ml/min/1.73 sqM) Est GFR (CKD-EPI)NonAf >90 (>60 ml/min/1.73 sqM) Glucose 86 (74-99) mg/dL Calcium 8.7 (8.4-10.2) mg/dL Total Bilirubin 0.8 (0.2-1.3) mg/dL AST 175 H (17-59) U/L ALT 120 H (4-49) U/L Alkaline Phosphatase 134 H (38-126) U/L Total Protein 6.9 (6.3-8.2) g/dL Albumin 3.4 L (3.5-5.0) g/dL Disposition Clinical Impression: Leg swelling, Head ache Disposition: HOME SELF-CARE Condition: Good Instructions (If sedation given, give patient instructions): Acute Headache (ED), Leg Edema (ED) Additional Instructions: Follow-up with PCP. Report back to ER with any new or worsening symptoms. Is patient prescribed a controlled substance at d/c from ED?: No Referrals: Sarita De La Torre MD [Primary Care Provider] - 1-2 days Time of Disposition: 01:50
[2024-10-29] MEDS: METOCLOPRAMIDE 5 MG/ML 2 ML VIAL IVP STA (01:11)
--- NOTE | 2024-10-29 01:16 | CT ---
EXAM: CT Angiography Head With Intravenous Contrast CLINICAL HISTORY: ITS.REASON CT Reason: Headache, history of aneurysm TECHNIQUE: Axial computed tomographic angiography images of the head with intravenous contrast. CTDI is 32.9 mGy and DLP is 1273 mGy-cm. This CT exam was performed using one or more of the following dose reduction techniques: automated exposure control, adjustment of the mA and/or kV according to patient size, and/or use of iterative reconstruction technique. MIP reconstructed images were created and reviewed. COMPARISON: No relevant prior studies available. FINDINGS: The dural venous sinuses are patent. Right internal carotid artery: No acute findings. Intracranial segment is patent with no significant stenosis. No aneurysm. Right anterior cerebral artery: Unremarkable. No occlusion or significant stenosis. No aneurysm. Right middle cerebral artery: Unremarkable. No occlusion or significant stenosis. No aneurysm. Right posterior cerebral artery: Unremarkable. No occlusion or significant stenosis. No aneurysm. Right vertebral artery: Hypoplastic Left internal carotid artery: No acute findings. Intracranial segment is patent with no significant stenosis. No aneurysm. Left anterior cerebral artery: Unremarkable. No occlusion or significant stenosis. No aneurysm. Left middle cerebral artery: Unremarkable. No occlusion or significant stenosis. No aneurysm. Left posterior cerebral artery: Unremarkable. No occlusion or significant stenosis. No aneurysm. Left vertebral artery: Unremarkable as visualized. Basilar artery: Unremarkable. No occlusion or significant stenosis. No aneurysm. IMPRESSION: Negative CT angiogram of the head.
--- NOTE | 2024-10-29 01:18 | CT ---
EXAM: CT Head Without Intravenous Contrast CLINICAL HISTORY: ITS.REASON CT Reason: Headache, history of aneurysm TECHNIQUE: Axial computed tomography images of the head/brain without intravenous contrast. CTDI is 49.1 mGy and DLP is 1156.4 mGy-cm. This CT exam was performed using one or more of the following dose reduction techniques: automated exposure control, adjustment of the mA and/or kV according to patient size, and/or use of iterative reconstruction technique. COMPARISON: No relevant prior studies available. FINDINGS: Brain: Unremarkable. No hemorrhage. No significant white matter disease. No edema. Ventricles: Unremarkable. No ventriculomegaly. Bones/joints: Unremarkable. No acute fracture. Soft tissues: Unremarkable. Sinuses: Unremarkable as visualized. No acute sinusitis. Mastoid air cells: Unremarkable as visualized. No mastoid effusion. IMPRESSION: No evidence of acute intracranial pathology.
[2024-10-29 01:40] LABS: ALT 120 U/L (4-49); AST 175 U/L (17-59); African American GFR (CKD) >90 (>60 ml/min/1.73 sqM); Albumin 3.4 g/dL (3.5-5.0); Alkaline Phosphatase 134 U/L (38-126); Anion Gap 5 mmol/L; Blood Urea Nitrogen 14 mg/dL (9-20); Calcium 8.7 mg/dL (8.4-10.2); Carbon Dioxide 26 mmol/L (22-30); Chloride 103 mmol/L (98-107); Glucose 86 mg/dL (74-99); Non-African American GFR(CKD) >90 (>60 ml/min/1.73 sqM); Potassium 4.3 mmol/L (3.5-5.1); Sodium 134 mmol/L (137-145); Total Protein 6.9 g/dL (6.3-8.2)
[2024-10-29 01:45] LABS: Basophils # (A) 0.02 10*3/uL (0.00-0.10); Basophils % (A) 0.5 %; Eosinophils # (A) 0.11 10*3/uL (0.04-0.35); Eosinophils % (A) 2.7 %; HCT 34.2 % (39.6-50.0); HGB 12.0 g/dL (13.0-17.0); Lymphocytes # (A) 1.73 10*3/uL (0.90-5.00); Lymphocytes % (A) 42.5 %; MCH 35.5 pg (27.0-32.0); MCHC 35.1 g/dL (32.0-37.0); MCV 101.2 fL (80.0-97.0); Monocytes # (A) 0.44 10*3/uL (0.20-1.00); Monocytes % (A) 10.8 %; Neutrophils # (A) 1.77 10*3/uL (1.80-7.70); Neutrophils % (A) 43.5 %; RBC 3.38 10*6/uL (4.40-5.60); RDW 13.3 % (11.5-14.5); WBC 4.07 10*3/uL (4.50-10.00)
[2024-10-29 01:54] LABS: Platelet Count 66 10*3/uL (140-440)
[2024-10-29] MEDS: KETOROLAC 15 MG/ML 1 ML VIAL IVP STA (02:00)
[2024-10-29 02:07] VITALS: BP 137/80; PULSE 66; RESP 16; TEMP 97.5
--- NOTE | 2024-10-30 00:40 | HP ---
HISTORY AND PHYSICAL CHIEF COMPLAINT: Abdominal pain. HISTORY OF PRESENT ILLNESS: This 48-year-old gentleman with a past medical history of remote history of EtOH and hepatitis C, factor V Leiden deficiency with history of DVT and PE, is complaining of abdominal pain, which is most diffuse and also felt in the anterior part of the upper part of the abdomen. The patient apparently also had many seizures. The patient had features of acute pancreatitis from the chemistry, but CT scan of the abdomen and pelvis did not show any acute abnormality. The patient apparently had severe anxiety and abnormal movements of the legs. PAST MEDICAL HISTORY: Remote history of EtOH, history of DVT, hypertension, history of recurrent pancreatitis. Rest of history and chart is also reviewed. HOME MEDICATIONS: Reviewed include Desyrel. Dose and rest of medications reviewed. ALLERGIES: None. FAMILY HISTORY: No history of heart disease or strokes in the family. SOCIAL HISTORY: History of vaping. No alcohol, THC. REVIEW OF SYSTEMS: A 14-point Review of Systems negative except as mentioned earlier. PHYSICAL EXAMINATION: VITAL SIGNS: Pulse 59, blood pressure 160/70, respirations 18. HEENT: Conjunctivae normal. NECK: No JVD. CARDIOVASCULAR: S1, S2 noted. RESPIRATION: Diminished at the bases. ABDOMEN: Soft, nontender. LEGS: No edema, no swelling. NERVOUS SYSTEM: Nonfocal. LABS: Amylase 302, lipase is 1005, AST is 208 and ALT is 120. Rest of the labs are noted. ASSESSMENT: 1. Abdominal pain with possible acute pancreatitis. 2. Elevated AST, ALT. 3. Mild leukopenia, anemia and thrombocytopenia, possibly secondary from chronic liver disease. 4. History of deep vein thrombosis. 5. Hypertension. 6. History of factor 5 Leiden deficiency. 7. Bipolar, attention-deficit hyperactivity disorder, schizoaffective disorder. 8. History of nicotine dependence. RECOMMENDATION: This 48-year-old gentleman presented with multiple complex medical issues. We will monitor the patient closely. I recommend to continue with pain management. Proton pump inhibitors. Resume the home medications. Guarded prognosis because of multiple complex medical issues and further recommendations see orders for details. Labs to be ordered in the morning. MMODL / IJN: [id number] /
== END 2024-10-29 02:07 | disposition home or self-care (01) ==
LOC: EC 19:52
DX: R51.9 Headache, unspecified (principal); M79.89 Other specified soft tissue disorders; B19.20 Unspecified viral hepatitis C without hepatic coma; D68.51 Activated protein C resistance; F17.290 Nicotine dependence, other tobacco product, uncomplicated
CPT/HCPCS: 36415; 80053; 85025; 93971; 70496; 70450; 99284; 96374; 96361; 96375; J2765; J2405; J1885; Q9967

== ENCOUNTER 2024-10-29 10:06 | Observation (INO) | payer MEDICARE ==
--- NOTE | 2024-10-29 10:29 | ED ---
Abdominal Pain HPI - General Chief Complaint: Abdominal Pain Stated Complaint: Abd pain, leg pain and swelling Time Seen by Provider: 10/29/24 10:29 Source: patient, RN notes reviewed, old records reviewed Mode of arrival: ambulatory Limitations: no limitations - History of Present Illness Initial Comments: 48-year-old male presented to the ER for evaluation of bilateral leg swelling and abdominal discomfort. Patient reports a past medical history significant of hypertension, hepatitis C and factor V Leiden with a history of DVTs/PEs and is currently on Xarelto. He reports on Friday he had a "mini seizure". He states this was witnessed and he was unconscious for approximately 15 seconds. He states after 10 minutes of being postictal he was per normal. He does report a history of seizures. He reports since then he has been he has been experiencing a achy abdominal discomfort along with nausea. He also reports swelling to bila teral lower extremities. He states he was also experiencing discomfort to posterior left knee which worsened yesterday. Patient was evaluated yesterday here in the emergency department and was ultimately discharged home after negative workup. He states he attempted to go to work today but given leg pain he left work early and returned as pain is unbearable. Patient reports his abdominal discomfort is achy in nature he denies any radiation of the pain. Denies any diarrhea/constipation, dysuria, increasing urinary frequency, hematuria or weak stream with urination. He denies any fevers, chills, chest pain, shortness of breath, paresthesias to bilateral upper or lower extremities, cough, congestion, vomiting. - Related Data Home Medications Medication Instructions Recorded Confirmed Aspirin EC [Ecotrin Low Dose] 81 mg PO DAILY 10/20/24 10/29/24 Rivaroxaban [Xarelto] 20 mg PO DAILY 10/20/24 10/29/24 Atorvastatin [Lipitor] 20 mg PO HS 10/22/24 10/29/24 Folic Acid 1 mg PO DAILY 10/29/24 10/29/24 LORazepam [Ativan] 1 mg PO DAILY PRN 10/29/24 10/29/24 Multivitamins, Thera [Multivitamin 1 tab PO DAILY 10/29/24 10/29/24 (formulary)] Thiamine [Vitamin B-1] 100 mg PO DAILY 10/29/24 10/29/24 Previous Rx's Medication Instructions Recorded Metoprolol Succinate (ER) [Toprol 25 mg PO DAILY #14 tab 10/20/24 XL] PARoxetine HCL [Paxil] 40 mg PO DAILY #14 tab 10/20/24 lisinopriL [Zestril] 2.5 mg PO DAILY #14 tab 10/20/24 ARIPiprazole [Abilify] 10 mg PO HS 30 Days #30 tab 10/26/24 traZODone HCL [Desyrel] 100 mg PO HS 30 Days #30 tab 10/26/24 Allergies Allergy/AdvReac Type Severity Reaction Status Date / Time No Known Allergies Allergy Verified 10/29/24 14:36 Review of Systems ROS Statement: Those systems with pertinent positive or pertinent negative responses have been documented in the HPI. ROS Other: All systems not noted in ROS Statement are negative. Past Medical History Past Medical History: Deep Vein Thrombosis (DVT), Hypertension Additional Past Medical History / Comment(s): Positive Factor 5 Leiden History of Any Multi-Drug Resistant Organisms: None Reported Past Surgical History: No Surgical Hx Reported Past Psychological History: ADD/ADHD, Bipolar, Schizoaffective Disorder Smoking Status: Current every day smoker, Vaper Past Alcohol Use History: None Reported Past Drug Use History: None Reported, Marijuana General Exam Limitations: no limitations General appearance: alert, in no apparent distress Respiratory exam: Present: normal lung sounds bilaterally. Absent: respiratory distress, wheezes, rales, rhonchi, stridor Cardiovascular Exam: Present: regular rate, normal rhythm, normal heart sounds. Absent: systolic murmur, diastolic murmur, rubs, gallop, clicks GI/Abdominal exam: Present: soft, normal bowel sounds. Absent: distended, tenderness, guarding, rebound, rigid Extremities exam: Present: normal inspection, full ROM, normal capillary refill, other (No pitting edema. Indentation from socks noted. Varicose veins bilateral lower extremities.). Absent: tenderness, pedal edema, joint swelling, calf tenderness Neurological exam: Present: alert, oriented X3, CN II-XII intact Skin exam: Present: warm, dry, intact, normal color. Absent: rash Course Vital Signs 10/29/24 10/29/24 10:08 15:00 Temperature 97.5 F L 97.8 F Pulse Rate 56 L 59 L Respiratory 18 18 Rate Blood Pressure 127/76 116/71 O2 Sat by Pulse 99 100 Oximetry Medical Decision Making - Medical Decision Making Was pt. sent in by a medical professional or institution (, PA, BIOCHEMISTRY TEACHER, urgent c are, hospital, or fpc...) When possible be specific @ -No Did you speak to anyone other than the patient for history (EMS, parent, family, police, friend...)? What history was obtained from this source @ -No Did you review nursing and triage notes (agree or disagree)? Why? @ -I reviewed and agree with nursing and triage notes Were old charts reviewed (outside hosp., previous admission, EMS record, old EKG, old radiological studies, urgent care reports/EKG's, fpc records)? Report findings @ -I reviewed ER visit from 10-28-2024 patient evaluated for left leg pain and swelling along with dizziness. Ultrasound venous Doppler left lower extremity negative for acute evidence of DVT. CT brain and head CTA negative. Laboratory studies obtained marked for WBC 4.07 with a hemoglobin of 12. AST 175, ALT 120, alk phos 134. Patient ultimately discharged home with follow-up PCP. Differential Diagnosis (chest pain, altered mental status, abdominal pain women, abdominal pain men, vaginal bleeding, weakness, fever, dyspnea, syncope, headache, dizziness, GI bleed, back pain, seizure, CVA, palpatations, mental health, musculoskeletal)? @ -Differential Abdominal Pain Men:Appendicitis, cholecystitis, diverticulosis, ischemic bowel, pancreatitis, hepatitis, UTI, gastroenteritis, AAA, incarcerated hernia, bowel obstruction, constipation, inflammatory bowel, hepatitis, peptic ulcer disease, splenic infarction, perforated viscus, testicular torsion, this is not meant to be an all-inclusive list EKG interpreted by me (3pts min.). @ -As above X-rays interpreted by me (1pt min.). @ -None done CT interpreted by me (1pt min.). @ -CT abdomen pelvis negative for acute intra-abdominal process. Prostate mild prominence U/S interpreted by me (1pt. min.). @ -None done What testing was considered but not performed or refused? (CT, X-rays, U/S, la bs)? Why? @ -Ultrasound venous Doppler to rule out DVT considered however patient had ultrasound of left lower extremity completed yesterday. Patient reports no pain to right lower extremity. There is no edema, erythema or calf tenderness noted on physical examination. What meds were considered but not given or refused? Why? @ -None Did you discuss the management of the patient with other professionals (professionals i.e. , PA, BIOCHEMISTRY TEACHER, lab, RT, psych nurse, clinical social work aide, tech ed teacher, teacher, quality officer, case fitter)? Give summary @ -Yes, Case discussed with [facility], Dr. Fofana who accepts admission. Was smoking cessation discussed for >3mins.? @ -No Was critical care preformed (if so, how long)? @ -No Were there social determinants of health that impacted care today? How? (Homelessness, low income, unemployed, alcoholism, drug addiction, transportation, low edu. Level, literacy, decrease access to med. care, retirement, rehab)? @ -No Was there de-escalation of care discussed even if they declined (Discuss DNR or withdrawal of care, Hospice)? DNR status @ -No What co-morbidities impacted this encounter? (DM, HTN, Smoking, COPD, CAD, Cancer, CVA, ARF, Chemo, Hep., AIDS, mental health diagnosis, sleep apnea, morbid obesity)? @ -Factor V Leiden, history of alcoholism, hepatitis C Was patient admitted / discharged? Hospital course, mention meds given and route, prescriptions, significant lab abnormalities, going to OR and other pertinent info. @ -Admitted. 48-year-old male presented to ER for evaluation of bilateral lower extremity edema and abdominal pain.Patient evaluated yesterday for left leg pain and swelling along with dizziness workup ultimately negative. Upon arrival vital signs stable. Patient in no signs acute distress nontoxic- appearing. Patient is home holding upper abdomen. On exam there is indentations from patient's socks with no significant pitting edema to bilateral lower extremities. Bilateral lower extremities are neurovascularly intact. Abdominal exam unremarkable with no focal abdominal tenderness, rebound or guarding. Laboratory studies along with urinalysis will be obtained, patient is agreeable. WBC of 4.04, macrocytic hyperchromic anemia 12.7 likely related from history of alcoholism lipase 1005, amylase 302 with elevation of AST 208, ALT 120. Total bilirubin 1.3. Urinalysis unremarkable. Given laboratory studies conc erning of pancreatitis, CT abdomen pelvis was obtained and negative for acute intra-abdominal process. Patient provided with symptomatic treatment and IV fluids in the emergency department. Upon reevaluation, patient educated on today's findings. Patient reporting continued abdominal discomfort, given this, admission was considered and accepted by [facility], Dr. Fofana for symptomatic treatment of pancreatitis. Lower extremity edema believed to be dependent in nature as patient reports edema does improve with elevation of legs no edema reported in the morning and it worsens while standing. Patient is agreeable and admitted in stable condition for further evaluation and treatment. Case discussed with ED attending, Dr. Michaels. Undiagnosed new problem with uncertain prognosis? @ -No Drug Therapy requiring intensive monitoring for toxicity (Heparin, Nitro, Insulin, Cardizem)? @ -No Were any procedures done? @ -No Diagnosis/symptom? @ -Pancreatitis Acute, or Chronic, or Acute on Chronic? @ -Acute Uncomplicated (without systemic symptoms) or Complicated (systemic symptoms)? @ -Complicated Side effects of treatment? @ -No Exacerbation, Progression, or Severe Exacerbation? @ -No Poses a threat to life or bodily function? How? (Chest pain, [place], [place], pneumonia, PE, COPD, DKA, ARF, appy, cholecystitis, CVA, Diverticulitis, Homicidal, Suicidal, threat to staff... and all critical care pts) @ -Possibly - Lab Data Result diagrams: 10/29/24 10:50 10/29/24 10:50 Lab Results 10/29/24 10/29/24 10/29/24 Range/Units 10:50 10:50 10:50 WBC 4.04 L (4.50-10.00) 10*3/uL RBC 3.52 L (4.40-5.60) 10*6/uL Hgb 12.7 L (13.0-17.0) g/dL Hct 36.2 L (39.6-50.0) % MCV 102.8 H (80.0-97.0) fL MCH 36.1 H (27.0-32.0) pg MCHC 35.1 (32.0-37.0) g/dL Plt Count 70 L (140-440) 10*3/uL MPV 11.5 (9.5-12.2) fL Immature Gran % (Auto) 0.2 % Neutrophils % Not Reportable Neutrophils % (Manual) 53 % Band Neuts % (Manual) 1 % Lymphocytes % Not Reportable Lymphocytes % (Manual) 35 % Monocytes % Not Reportable Monocytes % (Manual) 10 % Eosinophils % Not Reportable Eosinophils % (Manual) 1 % Basophils % Not Reportable Immature Gran # 0.01 (0.00-0.04) 10*3/uL Neutrophils # Not Reportable Neutrophils # (Manual) 2.18 (1.3-7.7) k/uL Lymphocytes # Not Reportable Lymphocytes # (Manual) 1.41 (1.0-4.8) k/uL Monocytes # Not Reportable Monocytes # (Manual) 0.40 (0-1.0) k/uL Eosinophils # Not Reportable Eosinophils # (Manual) 0.04 (0-0.7) k/uL Basophils # Not Reportable Nucleated RBCs 0 (0-0) /100 WBC Manual Slide Review Performed Immature Plt Fraction 7.1 H (1.1-6.1) % RBC Morphology Normal Sodium 137 (137-145) mmol/L Potassium 4.7 (3.5-5.1) mmol/L Chloride 109 H (98-107) mmol/L Carbon Dioxide 22 (22-30) mmol/L Anion Gap 6 mmol/L BUN 15 (9-20) mg/dL Creatinine 0.80 (0.66-1.25) mg/dL Est GFR (CKD-EPI)AfAm >90 (>60 ml/min/1.73 sqM) Est GFR (CKD-EPI)NonAf >90 (>60 ml/min/1.73 sqM) Glucose 113 H (74-99) mg/dL Plasma Lactic Acid Jermaine 1.2 (0.7-2.0) mmol/L Calcium 8.8 (8.4-10.2) mg/dL Total Bilirubin 1.3 (0.2-1.3) mg/dL AST 208 H (17-59) U/L ALT 120 H (4-49) U/L Alkaline Phosphatase 109 (38-126) U/L Total Protein 7.3 (6.3-8.2) g/dL Albumin 3.8 (3.5-5.0) g/dL Amylase 302 H* (30-110) U/L Lipase 1005 H (23-300) U/L Urine Color Urine Appearance (Clear) Urine pH (5.0-8.0) Ur Specific [place] (1.001-1.035) Urine Protein (Negative) Urine Glucose (UA) (Negative) Urine Ketones (Negative) Urine Blood (Negative) Urine Nitrite (Negative) Urine Bilirubin (Negative) Urine Urobilinogen (<2.0) mg/dL Ur Leukocyte Esterase (Negative) 10/29/24 Range/Units 11:05 WBC (4.50-10.00) 10*3/uL RBC (4.40-5.60) 10*6/uL Hgb (13.0-17.0) g/dL Hct (39.6-50.0) % MCV (80.0-97.0) fL MCH (27.0-32.0) pg MCHC (32.0-37.0) g/dL Plt Count (140-440) 10*3/uL MPV (9.5-12.2) fL Immature Gran % (Auto) % Neutrophils % Neutrophils % (Manual) % Band Neuts % (Manual) % Lymphocytes % Lymphocytes % (Manual) % Monocytes % Monocytes % (Manual) % Eosinophils % Eosinophils % (Manual) % Basophils % Immature Gran # (0.00-0.04) 10*3/uL Neutrophils # Neutrophils # (Manual) (1.3-7.7) k/uL Lymphocytes # Lymphocytes # (Manual) (1.0-4.8) k/uL Monocytes # Monocytes # (Manual) (0-1.0) k/uL Eosinophils # Eosinophils # (Manual) (0-0.7) k/uL Basophils # Nucleated RBCs (0-0) /100 WBC Manual Slide Review Immature Plt Fraction (1.1-6.1) % RBC Morphology Sodium (137-145) mmol/L Potassium (3.5-5.1) mmol/L Chloride (98-107) mmol/L Carbon Dioxide (22-30) mmol/L Anion Gap mmol/L BUN (9-20) mg/dL Creatinine (0.66-1.25) mg/dL Est GFR (CKD-EPI)AfAm (>60 ml/min/1.73 sqM) Est GFR (CKD-EPI)NonAf (>60 ml/min/1.73 sqM) Glucose (74-99) mg/dL Plasma Lactic Acid Jermaine (0.7-2.0) mmol/L Calcium (8.4-10.2) mg/dL Total Bilirubin (0.2-1.3) mg/dL AST (17-59) U/L ALT (4-49) U/L Alkaline Phosphatase (38-126) U/L Total Protein (6.3-8.2) g/dL Albumin (3.5-5.0) g/dL Amylase (30-110) U/L Lipase (23-300) U/L Urine Color Yellow Urine Appearance Clear (Clear) Urine pH 6.5 (5.0-8.0) Ur Specific [place] 1.034 (1.001-1.035) Urine Protein Negative (Negative) Urine Glucose (UA) Negative (Negative) Urine Ketones Negative (Negative) Urine Blood Negative (Negative) Urine Nitrite Negative (Negative) Urine Bilirubin Negative (Negative) Urine Urobilinogen 12.0 (<2.0) mg/dL Ur Leukocyte Esterase Negative (Negative) - EKG Data -: EKG Interpreted by Pr EKG Comments: EKG taken at 10: 59 showing a sinus bradycardia. Inverted T waves in lead III. No ST segment elevations or depressions. Ventricular rate 54, WV interval 174, QRS duration 94, QT/QTc 399/384. - Radiology Data Radiology results: report reviewed, image reviewed Disposition Clinical Impression: Pancreatitis Disposition: ADMITTED IP TO THIS [facility] Condition: Stable Time of Disposition: 13:15
[2024-10-29] MEDS: SODIUM CHLORIDE 0.9% 1,000 ML IV ONE (10:55)
[2024-10-29] MEDS: FAMOTIDINE 20 MG/2 ML VIAL IV STA (10:55)
[2024-10-29] MEDS: ACETAMINOPHEN TAB 325 MG TAB PO STA (10:55)
[2024-10-29 10:57] LABS: HCT 36.2 % (39.6-50.0); HGB 12.7 g/dL (13.0-17.0); Immature Platelet Fraction 7.1 % (1.1-6.1); MCH 36.1 pg (27.0-32.0); MCHC 35.1 g/dL (32.0-37.0); MCV 102.8 fL (80.0-97.0); RBC 3.52 10*6/uL (4.40-5.60); RDW 13.2 % (11.5-14.5); WBC 4.04 10*3/uL (4.50-10.00)
[2024-10-29 11:25] LABS: Bilirubin,Urine Negative (Negative); Color,Urine Yellow; Glucose,Urine (UA) Negative (Negative); Ketones,Urine Negative (Negative); PH, Urine 6.5 (5.0-8.0); Protein,Urine Negative (Negative); Specific Gravity,Urine 1.034 (1.001-1.035)
[2024-10-29 11:26] LABS: Blood,Urine Negative (Negative); Leukocyte Esterase,Urine Negative (Negative); Nitrite,Urine Negative (Negative); Urobilinogen,Urine 12.0 mg/dL (<2.0)
[2024-10-29 11:29] LABS: ALT 120 U/L (4-49); African American GFR (CKD) >90 (>60 ml/min/1.73 sqM); Albumin 3.8 g/dL (3.5-5.0); Anion Gap 6 mmol/L; Blood Urea Nitrogen 15 mg/dL (9-20); Calcium 8.8 mg/dL (8.4-10.2); Carbon Dioxide 22 mmol/L (22-30); Chloride 109 mmol/L (98-107); Glucose 113 mg/dL (74-99); Lipase 1005 U/L (23-300); Non-African American GFR(CKD) >90 (>60 ml/min/1.73 sqM); Sodium 137 mmol/L (137-145); Total Protein 7.3 g/dL (6.3-8.2)
[2024-10-29 11:35] LABS: Amylase 302 U/L (30-110)
[2024-10-29 11:36] LABS: AST 208 U/L (17-59); Alkaline Phosphatase 109 U/L (38-126); Potassium 4.7 mmol/L (3.5-5.1)
[2024-10-29 12:36] LABS: Eosinophils # (M) 0.04 k/uL (0-0.7); Lymphocytes # (M) 1.41 k/uL (1.0-4.8); Monocytes # (M) 0.40 k/uL (0-1.0); Neutrophils # (M) 2.18 k/uL (1.3-7.7); Neutrophils % (M) 53 %; Total Cells Counted 100
[2024-10-29 12:37] LABS: RBC Morphology Normal
[2024-10-29 12:38] LABS: Platelet Count 70 10*3/uL (140-440)
--- NOTE | 2024-10-29 13:11 | CT ---
EXAMINATION TYPE: CT abdomen pelvis w con DATE OF EXAM: 10/29/2024 12:22 PM COMPARISON: None. CLINICAL INDICATION: Male, 48 years old with history of pancreatitis/abd pain/hx factor V, abd pain/a bnormal labs TECHNIQUE: Axial images were obtained from above the diaphragm to the pubic rami in the axial plane a t 5 mm thick sections. Reconstructed images are reviewed on the computer in the coronal plane. CONTRAST: 100 mL of Isovue 300. Study performed without Oral Contrast DLP: 962 mGycm, Automated exposure control for dose reduction was used. FINDINGS: Limited CT sections are obtained the lung bases. The lung bases are clear. CT ABDOMEN: Liver: Normal Spleen: Normal Pancreas: Normal. No adjacent inflammatory changes. No cyst formation or abscess formation identified . No pancreatic duct dilatation or correlate with the laboratory results. Adrenal glands: The adrenal glands are normal. Gallbladder: Normal Kidneys: No masses are evident. No hydronephrosis is present. No cysts are present. Delayed images were obtained through the kidneys, which remain unremarkable. Aorta: Normal Inferior vena cava: Normal. CT PELVIS: Loops of bowel within the abdomen and pelvis are normal. The study is without oral contrast limit s bowel evaluation. Appendix: Normal as visualized. Urinary bladder: Not identified. No dilated tubular structure or inflammatory changes evident. Genitourinary structures: Prostate mild prominence. Osseous structures: No suspicious lytic or sclerotic lesions. IMPRESSION: 1. No suspicious radiographic changes for acute pancreatitis. Correlate with laboratory findings. [facility], , 10/29/2024 1:09 PM
[2024-10-29] MEDS: KETOROLAC 15 MG/ML 1 ML VIAL IVP STA (13:41)
[2024-10-29] MEDS: LORazepam 1 MG TAB PO STA (13:41)
[2024-10-29] MEDS: SODIUM CHLORIDE 0.9% 1,000 ML IV STA (13:42)
[2024-10-29] MEDS ORDERED: ACETAMINOPHEN TAB 325 MG TAB PO PRN (14:05)
[2024-10-29] MEDS ORDERED: NALOXONE 0.4 MG/ML 1 ML VIAL IV PRN (14:05)
[2024-10-29] MEDS ORDERED: KETOROLAC 15 MG/ML 1 ML VIAL IVP PRN (14:05)
[2024-10-29] MEDS ORDERED: MORPHINE SULFATE 4 MG/ML SYRINGE IV PRN (14:05)
[2024-10-29] MEDS: ONDANSETRON 4 MG/2 ML VIAL IVP PRN (15:40)
[2024-10-29] MEDS: MORPHINE SULFATE 2 MG/ML SYRINGE IVP PRN (15:41)
[2024-10-29] MEDS: SODIUM CHLORIDE 0.9% 1,000 ML IV SCH (18:27)
[2024-10-29] MEDS: HYDROcodone/APAP 5-325MG 1 EACH TAB PO PRN (18:31)
[2024-10-29 20:32] VITALS: RESP 16
[2024-10-29] MEDS: HYDROmorphone 0.5 MG/0.5 ML SYRINGE IVP PRN (21:41)
[2024-10-29] MEDS: PANTOPRAZOLE 40 MG/10 ML VIAL IVP SCH (21:41)
[2024-10-29] MEDS: ATORVASTATIN 20 MG TAB PO SCH (21:41)
[2024-10-30] MEDS: ASPIRIN 81 MG PO SCH (08:41)
[2024-10-30] MEDS: THIAMINE 100 MG TAB PO SCH (08:41)
[2024-10-30] MEDS: LORazepam 1 MG TAB PO PRN (08:41)
[2024-10-30] MEDS: RIVAROXABAN 20 MG TAB PO SCH (08:41)
[2024-10-30] MEDS: MULTIVITAMINS, THERA 1 EACH TAB PO SCH (08:41)
[2024-10-30] MEDS: METOPROLOL SUCCINATE (ER) 25 MG TAB.ER.24H PO SCH (08:41)
[2024-10-30] MEDS: PARoxetine 20 MG TAB PO SCH (08:42)
[2024-10-30] MEDS: FOLIC ACID 1 MG TAB PO SCH (08:42)
[2024-10-30 10:08] LABS: Amylase 151 U/L (23-121); Anion Gap 6.20 mmol/L (4.00-12.00); BUN/Creat Ratio 11.62 Ratio (12.00-20.00); Blood Urea Nitrogen 9.3 mg/dL (9.0-27.0); Carbon Dioxide 22.8 mmol/L (21.6-31.8); Chloride 108 mmol/L (96-109); Glucose 126 mg/dL (70-110); Lipase 48 U/L (14-60); Potassium 4.3 mmol/L (3.5-5.5); Sodium 137 mmol/L (135-145)
[2024-10-30 10:09] LABS: ALT 105 U/L (10-49); AST 145 U/L (14-35); Albumin 3.4 g/dL (3.8-4.9); Albumin/Globulin Ratio 1.13 Ratio (1.60-3.17); Alkaline Phosphatase 90 U/L (41-126); Calcium 8.1 mg/dL (8.7-10.3); Globulin 3.0 g/dL (1.6-3.3); Total Protein 6.4 g/dL (6.2-8.2)
[2024-10-30 10:47] LABS: HCT 34.8 % (39.6-50.0); HGB 11.4 g/dL (13.0-17.0); MCH 34.8 pg (27.0-32.0); MCHC 32.8 g/dL (32.0-37.0); MCV 106.1 FL (80.0-97.0); Platelet Count 54 X 10*3/uL (140-440); RBC 3.28 X 10*6/uL (4.40-5.60); RDW 13.5 % (11.5-14.5); WBC 1.64 X 10*3/uL (4.50-10.00)
[2024-10-30 10:48] LABS: Basophils # (A) 0.01 X 10*3/uL (0.00-0.10); Basophils % (A) 0.6 %; Eosinophils # (A) 0.06 X 10*3/uL (0.04-0.35); Eosinophils % (A) 3.7 %; Immature Grans, Automated 0 %; Immature Platelet Fraction 7.1 % (1.1-6.1); Lymphocytes # (A) 0.73 X 10*3/uL (0.90-5.00); Lymphocytes % (A) 44.5 %; Macrocytosis (M) 2+ (None Seen); Monocytes # (A) 0.16 X 10*3/uL (0.20-1.00); Monocytes % (A) 9.8 %; NRBC Per 100 WBC 0 X 10*3/uL (0.00-0.01); Neutrophils # (A) 0.68 X 10*3/uL (1.80-7.70); Neutrophils % (A) 41.4 %
[2024-10-30 11:17] VITALS: BMI 27.8
--- NOTE | 2024-10-31 03:13 | PN ---
PROGRESS NOTE DATE OF SERVICE: 10/30/2024 SUBJECTIVE: This is a 48-year-old gentleman admitted with acute pancreatitis being closely monitored. No chest pain. No palpitations. No fever. PHYSICAL EXAM: VITAL SIGNS: Pulse is 52 , blood pressure 120/74, and respirations 16. CHEST: Clear to auscultation CARDIOVASCULAR: S1 and S2. ABDOMEN: Soft. minimal tenderness in the epigastrium. LABORATORY DATA: Noted. ASSESSMENT: 1. Abdominal pain with possible acute pancreatitis. 2. Elevated AST and ALT. 3. Leukopenia, anemia, thrombocytopenia, possibly secondary to chronic liver disease with mild pancytopenia. 4. History of deep vein thrombosis. 5. Hypertension. 6. History of Factor V Leiden deficiency. 7. Bipolar, attention deficit disorder, attention deficit hyperactivity disorder, schizophrenia disorder. 8. History of nicotine dependence. RECOMMENDATIONS: Recommend to continue current management. Otherwise, continue with current medications. Guarded prognosis because of multiple complex medical issues. Further recommendations to follow. MMODL / IJN: [id number] /
[2024-10-31 07:28] VITALS: BP 144/88; PULSE 70; TEMP 97.6
[2024-10-31 09:59] LABS: Amylase 89 U/L (23-121); Anion Gap 6.10 mmol/L (4.00-12.00); BUN/Creat Ratio 7.89 Ratio (12.00-20.00); Blood Urea Nitrogen 7.1 mg/dL (9.0-27.0); Calcium 8.6 mg/dL (8.7-10.3); Carbon Dioxide 25.9 mmol/L (21.6-31.8); Chloride 108 mmol/L (96-109); Glucose 100 mg/dL (70-110); Lipase 26 U/L (14-60); Potassium 4.0 mmol/L (3.5-5.5); Sodium 140 mmol/L (135-145)
[2024-10-31 10:00] LABS: Basophils # (A) 0.01 X 10*3/uL (0.00-0.10); Basophils % (A) 0.5 %; Eosinophils # (A) 0.08 X 10*3/uL (0.04-0.35); Eosinophils % (A) 3.8 %; HCT 34.2 % (39.6-50.0); HGB 11.5 g/dL (13.0-17.0); Immature Grans, Automated 0 %; Immature Platelet Fraction 10.6 % (1.1-6.1); Lymphocytes # (A) 0.96 X 10*3/uL (0.90-5.00); Lymphocytes % (A) 45.1 %; MCH 35.6 pg (27.0-32.0); MCHC 33.6 g/dL (32.0-37.0); MCV 105.9 FL (80.0-97.0); Monocytes # (A) 0.24 X 10*3/uL (0.20-1.00); Monocytes % (A) 11.3 %; NRBC Per 100 WBC 0 X 10*3/uL (0.00-0.01); Neutrophils # (A) 0.84 X 10*3/uL (1.80-7.70); Neutrophils % (A) 39.3 %; Platelet Count 53 X 10*3/uL (140-440); RBC 3.23 X 10*6/uL (4.40-5.60); RDW 13.2 % (11.5-14.5); WBC 2.13 X 10*3/uL (4.50-10.00)
--- NOTE | 2024-10-31 15:08 | DS ---
DISCHARGE SUMMARY FINAL DIAGNOSES: 1. Acute abdominal pain, possible acute pancreatitis. 2. Elevated AST and ALT. 3. Leukopenia, anemia, thrombocytopenia, possibly secondary to chronic liver disease and mild pancytopenia. 4. History of deep venous thrombosis. 5. Hypertension. 6. History of factor V Leiden deficiency. 7. Bipolar, attention deficit disorder, and attention deficit hyperactivity disorder. 8. Remote history of EtOH. DISCHARGE DISPOSITION: The patient is being discharged in stable condition and guarded prognosis. HISTORY OF PRESENT ILLNESS: This is a 48-year-old gentleman admitted with a history of abdominal pain. The patient does not have any recent EtOH intake, treated symptomatically, improved significantly and recommend close followup with primary physician in the outpatient setting. Add Protonix to current regimen. Please refer to the discharge medication reconciliation for list of medications. MMODL / IJN: [id number] /
== END 2024-10-31 11:56 | disposition home or self-care (01) ==
LOC: EC 10:06 → 6NMEDSUR 13:26
PROVIDERS: ADMIT Hospitalist; ATTEND Hospitalist
DX: R10.9 Unspecified abdominal pain (principal); D61.818 Other pancytopenia; R74.01 Elevation of levels of liver transaminase levels; D68.51 Activated protein C resistance; I10 Essential (primary) hypertension; F90.9 Attention-deficit hyperactivity disorder, unspecified type; F31.9 Bipolar disorder, unspecified; F17.290 Nicotine dependence, other tobacco product, uncomplicated; M79.605 Pain in left leg; R22.43 Localized swelling, mass and lump, lower limb, bilateral; F10.20 Alcohol dependence, uncomplicated; B19.20 Unspecified viral hepatitis C without hepatic coma; R00.1 Bradycardia, unspecified; Z79.82 Long term (current) use of aspirin; Z79.01 Long term (current) use of anticoagulants; Z79.899 Other long term (current) drug therapy; Z86.718 Personal history of other venous thrombosis and embolism
CPT/HCPCS: 36415; 74177; 80048; 80053; 81003; 82150; 83605; 83690; 85025; 93005; 96361; 96374; 96375; 96376; 99285

== ENCOUNTER 2024-10-31 22:23 | Observation (INO) | payer MEDICARE ==
--- NOTE | 2024-10-31 23:40 | ED ---
General Adult HPI - General Chief complaint: Abdominal Pain Stated complaint: abd pain Time Seen by Provider: 10/31/24 23:15 Source: patient Mode of arrival: wheelchair - History of Present Illness Initial comments: Patient is a 48-year-old male past medical history factor V Leiden, prior DVT, presenting today for abdominal pain. Patient states he was recently admitted for pancreatitis and was discharged earlier today. States that he was offered continued admission and observation however he preferred discharge home. States that he was told to maintain a bland diet however upon returning home he drank 3 cups of coffee, a slushy, Mountain Dew. Endorses pain as located in epigastrium, radiating around to his left flank, states similar to when he had presented last however pain is more intense than previously. He denies alcohol or drug use. He states he was sent home with Protonix and did attempt to take this however did not improve his pain. Endorses nausea and 1 episode of nonbloody nonbilious emesis. Denies diarrhea, melena, hematochezia. Denies d ysuria hematuria or urinary frequency. Denies testicular pain. No prior abdominal surgeries. Denies chest pain or difficulty breathing. Denies fevers. - Related Data Home Medications Medication Instructions Recorded Confirmed Aspirin EC [Ecotrin Low Dose] 81 mg PO DAILY 10/20/24 11/01/24 Rivaroxaban [Xarelto] 20 mg PO DAILY 10/20/24 11/01/24 Atorvastatin [Lipitor] 20 mg PO HS 10/22/24 11/01/24 Folic Acid 1 mg PO DAILY 10/29/24 11/01/24 LORazepam [Ativan] 1 mg PO DAILY PRN 10/29/24 11/01/24 Multivitamins, Thera [Multivitamin 1 tab PO DAILY 10/29/24 11/01/24 (formulary)] Thiamine [Vitamin B-1] 100 mg PO DAILY 10/29/24 11/01/24 Previous Rx's Medication Instructions Recorded Metoprolol Succinate (ER) [Toprol 25 mg PO DAILY #14 tab 10/20/24 XL] PARoxetine HCL [Paxil] 40 mg PO DAILY #14 tab 10/20/24 lisinopriL [Zestril] 2.5 mg PO DAILY #14 tab 10/20/24 ARIPiprazole [Abilify] 10 mg PO HS 30 Days #30 tab 10/26/24 traZODone HCL [Desyrel] 100 mg PO HS 30 Days #30 tab 10/26/24 Pantoprazole Sodium [Protonix] 40 mg PO DAILY #15 tab 10/31/24 Allergies Allergy/AdvReac Type Severity Reaction Status Date / Time No Known Allergies Allergy Verified 11/01/24 08:58 Review of Systems ROS Statement: Those systems with pertinent positive or pertinent negative responses have been documented in the HPI. ROS Other: All systems not noted in ROS Statement are negative. Past Medical History Past Medical History: Deep Vein Thrombosis (DVT), Hypertension Additional Past Medical History / Comment(s): Positive Factor 5 Leiden History of Any Multi-Drug Resistant Organisms: None Reported Past Surgical History: No Surgical Hx Reported Past Anesthesia/Blood Transfusion Reactions: Previous Problems w/ Anesthesia Additional Past Anesthesia/Blood Transfusion Reaction / Comment(s): dropped HR to 4bpm Past Psychological History: ADD/ADHD, Bipolar, Schizoaffective Disorder Smoking Status: Current every day smoker, Vaper Past Alcohol Use History: None Reported Past Drug Use History: None Reported, Marijuana General Exam - General Exam Comments Initial Comments: PE: CONSTITUTIONAL: No apparent distress uncomfortable appearing, nontoxic SKIN: Warm, dry, no jaundice, hives or petechiae EYES: Pupils are equally round, extraocular movements intact without nystagmus, clear conjunctiva, non-icteric sclera HENT: Normocephalic, atraumatic, moist mucus membranes, oropharynx clear without exudates NECK: , Full range of motion, normal appearance PULMONARY: Clear to auscultation without wheezes, rhonchi, or rales, normal excursion, no accessory muscle use and no stridor CARDIOVASCULAR: Regular rate, rhythm, normal S1 and S2. No appreciated murmurs, rubs or gallops. Strong radial pulses with intact distal perfusion. No lower extremity edema GASTROINTESTINAL: Soft, active bowel sounds throughout, non-tender, non- distended, no palpable masses, no rebound or guarding. No hepatosplenomegaly GENITOURINARY: MUSCULOSKELETAL: Extremities have no gross deformity, no edema, redness, or swelling. No calf swelling NEUROLOGIC:_a/o x 3, GCS 15, normal mentation and speech. Moves all extremities x 4 without motor or sensory deficit PSYCHIATRIC:_normal mood and affect, thought process is clear and linear Course Vital Signs 10/31/24 11/01/24 11/01/24 23:12 07:16 08:00 Temperature 98.5 F 98.0 F Pulse Rate 99 69 80 Respiratory 20 18 18 Rate Blood Pressure 165/74 132/104 128/98 O2 Sat by Pulse 97 95 99 Oximetry 11/01/24 11/01/24 11/01/24 12:57 15:12 18:14 Temperature Pulse Rate 77 63 78 Respiratory 18 18 18 Rate Blood Pressure 132/90 137/87 133/70 O2 Sat by Pulse 99 97 99 Oximetry EKG Findings - EKG Comments: EKG Findings:: Sinus rhythm, rate 66 bpm intervals and except limits no significant elevations or depressions, no arrhythmia Medical Decision Making - Medical Decision Making Was pt. sent in by a medical professional or institution (, PA, [employer] DR[employer], urgent care, hospital, or longterm...) When possible be specific @ -No Did you speak to anyone other than the patient for history (EMS, parent, family, police, friend...)? What history was obtained from this source @ -No Did you review nursing and triage notes (agree or disagree)? Why? @ -I reviewed nursing and triage notes states patient presents for nausea and vomiting that continued since discharge from the facility with diagnosis of pancreatitis, agree with triage notes Were old charts reviewed (outside hosp., previous admission, EMS record, old EKG, old radiological studies, urgent care reports/EKG's, longterm records)? Report findings @ -Medical records reviewed-reviewed discharge summary from 10/31/2024 states patient had been admitted for acute pancreatitis, patient had CT brain, CTA head and neck done at that time that showed no acute process, ultrasound venous of left lower extremity that showed no DVT CT abdomen pelvis report showed "no suspicious changes for acute pancreatitis correlate with lab values" Differential Diagnosis (chest pain, altered mental status, abdominal pain women, abdominal pain men, vaginal bleeding, weakness, fever, dyspnea, syncope, headache, dizziness, GI bleed, back pain, seizure, CVA, palpatations, mental health, musculoskeletal)? Differential Abdominal Pain Men: Appendicitis, cholecystitis, diverticulosis, ischemic bowel, pancreatitis, hepatitis, UTI, gastroenteritis, AAA, incarcerated hernia, bowel obstruction, co nstipation, inflammatory bowel, peptic ulcer disease, splenic infarction, perforated viscus, testicular torsion, this is not meant to be an all-inclusive list EKG interpreted by me (3pts min.). @ -As above X-rays interpreted by me (1pt min.). @ -None done CT interpreted by me (1pt min.). @ -None done U/S interpreted by me (1pt. min.). @ -None done What testing was considered but not performed or refused? (CT, X-rays, U/S, labs)? Why? @CT abdomen pelvis was considered however patient states symptoms are consistent with his earlier admission for pancreatitis with exception of increased intensity and pain, abdominal exam is benign, vitals are stable at this time we do not feel repeat CT is indicated What meds were considered but not given or refused? Why? @ -None Did you discuss the management of the patient with other professionals (professionals i.e. , PA, [employer]IVER, lab, RT, psych nurse, social work program coordinator, digital retoucher, teacher, parking regulation enforcement officer, protective services case worker)? Give summary @ -No Was smoking cessation discussed for >3mins.? @ -No Was critical care preformed (if so, how long)? @ -No Were there social determinants of health that impacted care today? How? (Homelessness, low income, unemployed, alcoholism, drug addiction, transportation, low edu. Level, literacy, decrease access to med. care, fpc, rehab)? @ -No Was there de-escalation of care discussed even if they declined (Discuss DNR or withdrawal of care, Hospice)? @ -No What co-morbidities impacted this encounter? (DM, HTN, Smoking, COPD, CAD, Cancer, CVA, ARF, Chemo, Hep., AIDS, mental health diagnosis, sleep apnea, morbid obesity)? @ -None Was patient admitted / discharged? Hospital course, mention meds given and route, prescriptions, significant lab abnormalities, going to OR and other pertinent info. Admission-Patient is a pleasant 48-year-old gentleman, recent admission for pancreatitis presenting for recurrent abdominal pain nausea and vomiting. Patient is moderately hypertensive on arrival with blood pressure 165/74 oth erwise vital signs stable. On my assessment patient is uncomfortable appearing, difficulty lying still though nontoxic. Abdominal exam is benign. Discussed with patient obtaining labs, giving IV fluids and pain medications. Agreeable with plan of care. Labs reviewed, Patient has persistently elevated AST/ALT 121/104, this is similar to his recent admission, bilirubin is not elevated, 0.7, lipase 115, of note when he was admitted on the was 1005, down trended to 26 yesterday. Urinalysis unremarkable. On reassessment patient denied improvement in pain. Pt was given additional pain medications and GI cocktail without pain control. Pt was admitted for intractable abdominal pain. Case discussed with Dr. Colbert who kindly accepted pt for admission. Undiagnosed new problem with uncertain prognosis? @ -No Drug Therapy requiring intensive monitoring for toxicity (Heparin, Nitro, Insul in, Cardizem)? @ -No Were any procedures done? @ -No Diagnosis/symptom? @ -acute pancreatitis, intractable abdominal pain Acute, or Chronic, or Acute on Chronic? acute Uncomplicated (without systemic symptoms) or Complicated (systemic symptoms)? @complicated Side effects of treatment? @ -No Exacerbation, Progression, or Severe Exacerbation? @ -No Poses a threat to life or bodily function? How? (Chest pain, [place], [place], pneumonia, PE, COPD, DKA, ARF, appy, cholecystitis, CVA, Diverticulitis, Homicidal, Suicidal, threat to staff... and all critical care pts) @ possibly - Lab Data Result diagrams: 11/02/24 06:56 11/02/24 06:56 Lab Results 10/31/24 11/01/24 11/01/24 Range/Units 00:44 00:44 00:44 WBC 3.37 L (4.50-10.00) 10*3/uL RBC 3.13 L (4.40-5.60) 10*6/uL Hgb 11.0 L (13.0-17.0) g/dL Hct 31.5 L (39.6-50.0) % MCV 100.6 H (80.0-97.0) fL MCH 35.1 H (27.0-32.0) pg MCHC 34.9 (32.0-37.0) g/dL Plt Count 57 L (140-440) 10*3/uL MPV 12.4 H (9.5-12.2) fL Immature Gran % (Auto) 0 % Neutrophils % 55.8 % Lymphocytes % 33.2 % Monocytes % 8.6 % Eosinophils % 2.1 % Basophils % 0.3 % Immature Gran # 0.00 (0.00-0.04) 10*3/uL Neutrophils # 1.88 (1.80-7.70) 10*3/uL Lymphocytes # 1.12 (0.90-5.00) 10*3/uL Monocytes # 0.29 (0.20-1.00) 10*3/uL Eosinophils # 0.07 (0.04-0.35) 10*3/uL Basophils # 0.01 (0.00-0.10) 10*3/uL Manual Slide Review Performed RBC Morphology Normal PT (10.0-12.5) sec INR (<1.2) APTT (22.0-30.0) sec Sodium 137 (137-145) mmol/L Potassium 3.8 (3.5-5.1) mmol/L Chloride 107 (98-107) mmol/L Carbon Dioxide 24 (22-30) mmol/L Anion Gap 6 mmol/L BUN 9 (9-20) mg/dL Creatinine 0.75 (0.66-1.25) mg/dL Est GFR (CKD-EPI)AfAm >90 (>60 ml/min/1.73 sqM) Est GFR (CKD-EPI)NonAf >90 (>60 ml/min/1.73 sqM) Glucose 92 (74-99) mg/dL Plasma Lactic Acid Jermaine (0.7-2.0) mmol/L Calcium 8.6 (8.4-10.2) mg/dL Total Bilirubin 0.7 (0.2-1.3) mg/dL AST 121 H (17-59) U/L ALT 104 H (4-49) U/L Alkaline Phosphatase 132 H (38-126) U/L Total Protein 6.8 (6.3-8.2) g/dL Albumin 3.4 L (3.5-5.0) g/dL Amylase 76 (30-110) U/L Lipase 115 (23-300) U/L Urine Color Yellow Urine Appearance Clear (Clear) Urine pH 7.5 (5.0-8.0) Ur Specific Hart[place] 1.016 (1.001-1.035) Urine Protein Negative (Negative) Urine Glucose (UA) Negative (Negative) Urine Ketones Negative (Negative) Urine Blood Negative (Negative) Urine Nitrite Negative (Negative) Urine Bilirubin Negative (Negative) Urine Urobilinogen >12.0 (<2.0) mg/dL Ur Leukocyte Esterase Negative (Negative) 11/01/24 11/01/24 Range/Units 00:44 00:44 WBC (4.50-10.00) 10*3/uL RBC (4.40-5.60) 10*6/uL Hgb (13.0-17.0) g/dL Hct (39.6-50.0) % MCV (80.0-97.0) fL MCH (27.0-32.0) pg MCHC (32.0-37.0) g/dL Plt Count (140-440) 10*3/uL MPV (9.5-12.2) fL Immature Gran % (Auto) % Neutrophils % % Lymphocytes % % Monocytes % % Eosinophils % % Basophils % % Immature Gran # (0.00-0.04) 10*3/uL Neutrophils # (1.80-7.70) 10*3/uL Lymphocytes # (0.90-5.00) 10*3/uL Monocytes # (0.20-1.00) 10*3/uL Eosinophils # (0.04-0.35) 10*3/uL Basophils # (0.00-0.10) 10*3/uL Manual Slide Review RBC Morphology PT 14.9 H (10.0-12.5) sec INR 1.4 H (<1.2) APTT 28.8 (22.0-30.0) sec Sodium (137-145) mmol/L Potassium (3.5-5.1) mmol/L Chloride (98-107) mmol/L Carbon Dioxide (22-30) mmol/L Anion Gap mmol/L BUN (9-20) mg/dL Creatinine (0.66-1.25) mg/dL Est GFR (CKD-EPI)AfAm (>60 ml/min/1.73 sqM) Est GFR (CKD-EPI)NonAf (>60 ml/min/1.73 sqM) Glucose (74-99) mg/dL Plasma Lactic Acid Jermaine 0.8 (0.7-2.0) mmol/L Calcium (8.4-10.2) mg/dL Total Bilirubin (0.2-1.3) mg/dL AST (17-59) U/L ALT (4-49) U/L Alkaline Phosphatase (38-126) U/L Total Protein (6.3-8.2) g/dL Albumin (3.5-5.0) g/dL Amylase (30-110) U/L Lipase (23-300) U/L Urine Color Urine Appearance (Clear) Urine pH (5.0-8.0) Ur Specific [place] (1.001-1.035) Urine Protein (Negative) Urine Glucose (UA) (Negative) Urine Ketones (Negative) Urine Blood (Negative) Urine Nitrite (Negative) Urine Bilirubin (Negative) Urine Urobilinogen (<2.0) mg/dL Ur Leukocyte Esterase (Negative) Disposition Clinical Impression: Pancreatitis Disposition: ADMITTED IP TO THIS HOSP Condition: Stable
[2024-11-01] MEDS: SODIUM CHLORIDE 0.9% 1,000 ML IV SCH (00:37)
[2024-11-01] MEDS: SODIUM CHLORIDE 0.9% 1,000 ML IV ONE (00:37)
[2024-11-01] MEDS: ONDANSETRON 4 MG/2 ML VIAL IVP STA ×2 (00:37→05:58)
[2024-11-01] MEDS: HYDROmorphone 1 MG/ML 1 ML SYRINGE IVP STA ×2 (00:41→02:46)
[2024-11-01 01:24] LABS: ALT 104 U/L (4-49); AST 121 U/L (17-59); African American GFR (CKD) >90 (>60 ml/min/1.73 sqM); Albumin 3.4 g/dL (3.5-5.0); Alkaline Phosphatase 132 U/L (38-126); Amylase 76 U/L (30-110); Anion Gap 6 mmol/L; Blood Urea Nitrogen 9 mg/dL (9-20); Calcium 8.6 mg/dL (8.4-10.2); Carbon Dioxide 24 mmol/L (22-30); Chloride 107 mmol/L (98-107); Glucose 92 mg/dL (74-99); Lipase 115 U/L (23-300); Non-African American GFR(CKD) >90 (>60 ml/min/1.73 sqM); Potassium 3.8 mmol/L (3.5-5.1); Sodium 137 mmol/L (137-145); Total Protein 6.8 g/dL (6.3-8.2)
[2024-11-01 01:25] LABS: Bilirubin,Urine Negative (Negative); Blood,Urine Negative (Negative); Color,Urine Yellow; Glucose,Urine (UA) Negative (Negative); Ketones,Urine Negative (Negative); Leukocyte Esterase,Urine Negative (Negative); Nitrite,Urine Negative (Negative); PH, Urine 7.5 (5.0-8.0); Protein,Urine Negative (Negative); Specific Gravity,Urine 1.016 (1.001-1.035); Urobilinogen,Urine >12.0 mg/dL (<2.0)
[2024-11-01 01:28] LABS: INR 1.4 (<1.2); Partial Thromboplastin Time 28.8 sec (22.0-30.0); Prothrombin Time 14.9 sec (10.0-12.5)
[2024-11-01 01:39] LABS: Basophils # (A) 0.01 10*3/uL (0.00-0.10); Basophils % (A) 0.3 %; Eosinophils # (A) 0.07 10*3/uL (0.04-0.35); Eosinophils % (A) 2.1 %; HCT 31.5 % (39.6-50.0); HGB 11.0 g/dL (13.0-17.0); Lymphocytes # (A) 1.12 10*3/uL (0.90-5.00); Lymphocytes % (A) 33.2 %; MCH 35.1 pg (27.0-32.0); MCHC 34.9 g/dL (32.0-37.0); MCV 100.6 fL (80.0-97.0); Monocytes # (A) 0.29 10*3/uL (0.20-1.00); Monocytes % (A) 8.6 %; Neutrophils # (A) 1.88 10*3/uL (1.80-7.70); Neutrophils % (A) 55.8 %; RBC 3.13 10*6/uL (4.40-5.60); RDW 13.0 % (11.5-14.5); WBC 3.37 10*3/uL (4.50-10.00)
[2024-11-01 02:04] LABS: Platelet Count 57 10*3/uL (140-440)
[2024-11-01] MEDS: PANTOPRAZOLE 40 MG/10 ML VIAL IVP STA (02:44)
[2024-11-01] MEDS: FAMOTIDINE 20 MG/2 ML VIAL IV STA (02:45)
[2024-11-01 03:02] LABS: RBC Morphology Normal
[2024-11-01] MEDS ORDERED: NALOXONE 0.4 MG/ML 1 ML VIAL IV PRN (05:31)
[2024-11-01] MEDS ORDERED: CALCIUM CARBONATE 500 MG CHEWABLE PO PRN (05:31)
[2024-11-01] MEDS ORDERED: ONDANSETRON 4 MG/2 ML VIAL IVP PRN (05:31)
[2024-11-01] MEDS ORDERED: ACETAMINOPHEN TAB 325 MG TAB PO PRN (05:31)
[2024-11-01] MEDS ORDERED: MAG HYDROX/AL HYDROX/SIMETH 30 ML CUP PO PRN (05:31)
[2024-11-01] MEDS: MORPHINE SULFATE 4 MG/ML SYRINGE IVP STA (05:49)
[2024-11-01] MEDS: SUCRALFATE 1 GM TAB PO STA (05:54)
[2024-11-01] MEDS: LORazepam 1 MG TAB PO PRN (05:54)
[2024-11-01] MEDS: MAG HYDROX/AL HYDROX/SIMETH 30 ML CUP PO STA (05:57)
[2024-11-01] MEDS: LIDOCAINE VISCOUS 2% 15 ML CUP PO ONE (05:57)
[2024-11-01] MEDS: LORazepam 1 MG TAB PO STA (06:03)
[2024-11-01] MEDS: PANTOPRAZOLE 40 MG TABLET PO SCH (07:17)
[2024-11-01] MEDS: HYDROmorphone 0.5 MG/0.5 ML SYRINGE IVP PRN (07:48)
[2024-11-01] MEDS: ASPIRIN 81 MG PO SCH (08:44)
[2024-11-01] MEDS: PARoxetine 20 MG TAB PO SCH (08:44)
[2024-11-01] MEDS: METOPROLOL SUCCINATE (ER) 25 MG TAB.ER.24H PO SCH (08:44)
[2024-11-01] MEDS: FOLIC ACID 1 MG TAB PO SCH (08:44)
[2024-11-01] MEDS: MULTIVITAMINS, THERA 1 EACH TAB PO SCH (08:44)
[2024-11-01] MEDS: THIAMINE 100 MG TAB PO SCH (08:44)
[2024-11-01] MEDS: PANTOPRAZOLE 40 MG/10 ML VIAL IV SCH ×2 (08:47→19:56)
--- NOTE | 2024-11-01 12:36 | P.CONS ---
History of Present Illness - Reason for Consult Consult date: 11/01/24 Pancreatitis Requesting physician: Ruthie Larson - Chief Complaint Abdominal pain - History of Present Illness This is a pleasant 48-year-old male who when entering room was sleeping soundly. Patient came into the emergency department for abdominal pain yesterday fely madrigal. Apparently patient had been here just prior to that and was discharged yesterday earlier in the day for abdominal pain and pancreatitis. He went home was told to stay on a bland diet but apparently had multiple cups of coffee slushy and Mountain Dew and presented back with complaints of epigastric pain radiating to his left flank. When asked patient states abdominal pain is improved but he states that he has pain all over that he has pain physically, emotionally and mentally. 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 He is an everyday smoker. Patient states that his first episode of pancreatitis was about 10 years ago secondary to drinking. He states he does not drink any more alcohol at all. He denies any recent medications. He had a CT of the abdomen pelvis on 10/29/2024 with no evidence of pancreatitis however patient did have elevated amylase and lipase at that time 302 and 1005 respectively. On this admission patient's amylase and lipase are normal he has some mild elevation of his LFTs Review of Systems REVIEW OF SYSTEMS: CARDIOPULMONARY: No chest pain or shortness of breath. Gastrointestinal: Abdominal pain. No nausea or vomiting. No hematemesis, coffee-ground emesis. No rectal bleeding, or melena. GENITOURINARY: No dysuria or hematuria. MUSCULOSKELETAL: Reports normal range of motion. SKIN: No rashes. No jaundice. ENDOCRINE: No chills, fevers. No excessive weight gain or loss. No polydipsia or polyuria. PSYCHIATRIC: Reports emotionally and mentally and pain. NEUROLOGY: No change in mental status. Denies dizziness, headache. ENT: Vision unremarkable. CONSTITUTIONAL: No recent weight loss. No fever, chills, night sweats. Past Medical History Past Medical History: Deep Vein Thrombosis (DVT), Hypertension Additional Past Medical History / Comment(s): Positive Factor 5 Leiden History of Any Multi-Drug Resistant Organisms: None Reported Past Surgical History: No Surgical Hx Reported Past Anesthesia/Blood Transfusion Reactions: Previous Problems w/ Anesthesia Additional Past Anesthesia/Blood Transfusion Reaction / Comm: dropped HR to 4bpm Past Psychological History: ADD/ADHD, Bipolar, Schizoaffective Disorder Smoking Status: Current every day smoker, Vaper Past Alcohol Use History: None Reported Past Drug Use History: None Reported, Marijuana Medications and Allergies Home Medications Medication Instructions Recorded Confirmed Type Aspirin EC [Ecotrin Low Dose] 81 mg PO DAILY 10/20/24 11/01/24 History Metoprolol Succinate (ER) [Toprol 25 mg PO DAILY #14 tab 10/20/24 11/01/24 Rx XL] PARoxetine HCL [Paxil] 40 mg PO DAILY #14 tab 10/20/24 11/01/24 Rx Rivaroxaban [Xarelto] 20 mg PO DAILY 10/20/24 11/01/24 History lisinopriL [Zestril] 2.5 mg PO DAILY #14 tab 10/20/24 11/01/24 Rx Atorvastatin [Lipitor] 20 mg PO HS 10/22/24 11/01/24 History ARIPiprazole [Abilify] 10 mg PO HS 30 Days #30 tab 10/26/24 11/01/24 Rx traZODone HCL [Desyrel] 100 mg PO HS 30 Days #30 tab 10/26/24 11/01/24 Rx Folic Acid 1 mg PO DAILY 10/29/24 11/01/24 History LORazepam [Ativan] 1 mg PO DAILY PRN 10/29/24 11/01/24 History Multivitamins, Thera [Multivitamin 1 tab PO DAILY 10/29/24 11/01/24 History (formulary)] Thiamine [Vitamin B-1] 100 mg PO DAILY 10/29/24 11/01/24 History Pantoprazole Sodium [Protonix] 40 mg PO DAILY #15 tab 10/31/24 11/01/24 Rx Allergies Allergy/AdvReac Type Severity Reaction Status Date / Time No Known Allergies Allergy Verified 11/01/24 08:58 Physical Exam Vitals: Vital Signs Temp Pulse Resp BP Pulse Ox 11/01/24 07:16 98.0 F 69 18 132/104 95 10/31/24 23:12 98.5 F 99 20 165/74 97 Intake and Output 10/31/24 11/01/24 11/01/24 22:59 06:59 14:59 Other: Weight 86.183 kg Results CBC & Chem 7: 11/01/24 00:44 11/01/24 00:44 Labs: Abnormal Lab Results - Last 24 Hours (Table) 11/01/24 11/01/24 11/01/24 Range/Units 00:44 00:44 00:44 WBC 3.37 L (4.50-10.00) 10*3/uL RBC 3.13 L (4.40-5.60) 10*6/uL Hgb 11.0 L (13.0-17.0) g/dL Hct 31.5 L (39.6-50.0) % MCV 100.6 H (80.0-97.0) fL MCH 35.1 H (27.0-32.0) pg Plt Count 57 L (140-440) 10*3/uL MPV 12.4 H (9.5-12.2) fL PT 14.9 H (10.0-12.5) sec INR 1.4 H (<1.2) AST 121 H (17-59) U/L ALT 104 H (4-49) U/L Alkaline Phosphatase 132 H (38-126) U/L Albumin 3.4 L (3.5-5.0) g/dL Assessment and Plan (1) Abdominal pain Narrative/Plan: 48-year-old male presenting with recurrent abdominal pain who was recently admitted and diagnosed with pancreatitis with elevated amylase and lipase that were normal the next day with no CT evidence of pancreatitis. Had previous history of alcohol pancreatitis about 10 years ago. Patient now without any criteria for pancreatitis as there is no elevation in amylase and lipase, no repeat CT has been done. Has some elevation in his LFTs with a normal bilirubin. Unclear etiology of abdominal pain may be secondary to his recent diagnosis of pancreatitis, unknown etiology possibly from previous history of alcohol abuse. Patient denies any new medications. Abdominal ultrasound to be ordered to evaluate gallbladder. Current Visit: Yes Status: Acute Code(s): R10.9 - UNSPECIFIED ABDOMINAL PAIN SNOMED Code(s): 59717183 (2) Elevated LFTs Current Visit: Yes Status: Acute Code(s): R79.89 - OTHER SPECIFIED ABNORMAL FINDINGS OF BLOOD CHEMISTRY SNOMED Code(s): 147604333 Plan: 1. Continue symptomatic and supportive care 2. Pain medication as needed 3. Repeat CMP tomorrow 4. May have clear liquid diet 5. Gallbladder ultrasound ordered Thank you for this consultation, we will continue to follow Dr. Jovi Garcia I agree with the dictator's note, documented as a scribe by Fanta Chapman.
--- NOTE | 2024-11-01 13:30 | US ---
EXAMINATION TYPE: US gallbladder DATE OF EXAM: 11/01/2024 COMPARISON: CT 10/29/2024 CLINICAL INDICATION: Male, 48 years old with history of Abdominal pain, elevated LFTs; RUQ pain TECHNIQUE: Grayscale and color Doppler imaging of the right upper quadrant. FINDINGS: EXAM MEASUREMENTS: Liver Length: 17.8 cm Gallbladder Wall: 0.2 cm CBD: 0.2 cm, color Doppler imaging was utilized to isolate the common bile duct for measurement. Right Kidney: 10.8 x 5.4 x 5.8 cm DIE HOLDER NOTES: Exam limited by bowel gas Pancreas: Not visualized due to overlying bowel gas Liver: wnl Gallbladder: wnl Evidence for sonographic Jaimes's sign: No CBD: wnl Right Kidney: No hydronephrosis or masses seen Pancreas is obscured by overlying bowel gas. The liver is at the upper limits of normal for size. No focal lesion. Noncirrhotic morphology. Gallbladder demonstrates no wall thickening, stones or surroun ding fluid. Negative sonographic Jaimes's sign. Common bile duct is within normal limits. Right kidne y demonstrates no hydronephrosis, shadowing calculus or solid mass. IMPRESSION: No ultrasound evidence for acute process. [facility], , 11/01/2024 1:27 PM
[2024-11-01] MEDS: RIVAROXABAN 20 MG TAB PO SCH (18:13)
[2024-11-01] MEDS: ATORVASTATIN 20 MG TAB PO SCH (19:55)
[2024-11-01] MEDS: LORazepam 0.5 MG TAB PO PRN (19:55)
[2024-11-02 07:22] LABS: HCT 33.3 % (39.6-50.0); HGB 11.1 g/dL (13.0-17.0); MCH 34.4 pg (27.0-32.0); MCHC 33.3 g/dL (32.0-37.0); MCV 103.1 fL (80.0-97.0); RBC 3.23 10*6/uL (4.40-5.60); RDW 13.2 % (11.5-14.5); WBC 2.11 10*3/uL (4.50-10.00)
[2024-11-02 07:26] LABS: Platelet Count 46 10*3/uL (140-440)
[2024-11-02 07:36] LABS: African American GFR (CKD) >90 (>60 ml/min/1.73 sqM); Amylase 73 U/L (30-110); Anion Gap 6 mmol/L; Blood Urea Nitrogen 6 mg/dL (9-20); Calcium 8.5 mg/dL (8.4-10.2); Carbon Dioxide 24 mmol/L (22-30); Chloride 108 mmol/L (98-107); Glucose 84 mg/dL (74-99); Lipase 77 U/L (23-300); Non-African American GFR(CKD) >90 (>60 ml/min/1.73 sqM); Potassium 4.5 mmol/L (3.5-5.1); Sodium 138 mmol/L (137-145)
[2024-11-02 08:18] LABS: Eosinophils # (M) 0.08 k/uL (0-0.7); Lymphocytes # (M) 0.72 k/uL (1.0-4.8); Monocytes # (M) 0.15 k/uL (0-1.0); Neutrophils # (M) 1.16 k/uL (1.3-7.7); Neutrophils % (M) 55 %; Total Cells Counted 100
[2024-11-02 08:19] LABS: Poikilocytosis (M) Present
[2024-11-02 10:05] LABS: Bilirubin,Unconjugated 0.8 mg/dL (0.0-1.1)
--- NOTE | 2024-11-02 10:10 | P.PN ---
Subjective Progress Note Date: 11/02/24 Principal diagnosis: Abdominal pain This is a pleasant 48-year-old male who when entering room was sleeping soundly. Patient came into the emergency department for abdominal pain yesterday evening. Apparently patient had been here just prior to that and was discharged yesterday earlier in the day for abdominal pain and pancreatitis. He went home was told to stay on a bland diet but apparently had multiple cups of coffee slushy and Mountain Dew and presented back with complaints of epigastric pain radiating to his left flank. When asked patient states abdominal pain is improved but he states that he has pain all over that he has pain physically, emotionally and mentally. 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 He is an everyday smoker. Patient states that his first episode of pancreatitis was about 10 years ago secondary to drinking. He states he does not drink any more alcohol at all. He denies any recent medications. He had a CT of the abdomen pelvis on 10/29/2024 with no evidence of pancreatitis however patient did have elevated amylase and lipase at that time 302 and 1005 respectively. On this admission patient's amylase and lipase are normal he has some mild elevation of his LFTs 11/02/2024 Patient seen and examined today as a follow-up. He is ambulating in the halls. States his pain is improved however he was given pain medication about an hour ago. States the initial pain he had when he came in was more upper abdomen kind of wrapped around his sides which has improved. Patient does have a history of hepatitis C which he contracted from getting tattoos in care home states that he was diagnosed around age 25 and has not ever had any treatment. Also reports that his liver enzymes are usually always elevated. He does not follow with any senior biostatistician/group leader. Gallbladder ultrasound was essentially normal, liver size upper end of normal. Patient again denies any alcohol consumption states he stopped drinking about 10 years ago. States no illicit drug use other than marijuana use. Today's labs WBC 2.1 hemoglobin 11 platelet count 46,000 total bilirubin 1.4 AST 126 ALT 101 alkaline phosphatase 85 lipase 77 Objective - Vital Signs Vital signs: Vital Signs Temp 97.3 F L 11/02/24 07:30 Pulse 50 L 11/02/24 07:30 Resp 17 11/02/24 07:30 BP 149/84 11/02/24 07:30 Pulse Ox 100 11/02/24 07:30 FiO2 Intake & Output 11/01/24 11/02/24 11/02/24 18:59 06:59 18:59 Intake Total 594 Balance 594 Weight 86.183 kg Intake: Oral 594 Other: # Voids 3 - Exam General appearance: The patient is alert, oriented, appears in no acute distress. HET: Head is normocephalic and atraumatic. Conjunctiva pink. Sclera anicteric. Neck: Supple without lymphadenopathy. Abdomen: Soft, nontender, nondistended. Extremities: Normal skin color and turgor. No pedal edema Skin: No rashes, no jaundice Neurological: No focal deficits. Alert and oriented. - Labs CBC & Chem 7: 11/02/24 06:56 11/02/24 06:56 Labs: Abnormal Lab Results - Last 24 Hours (Table) 11/02/24 11/02/24 Range/Units 06:56 06:56 WBC 2.11 L (4.50-10.00) 10*3/uL RBC 3.23 L (4.40-5.60) 10*6/uL Hgb 11.1 L (13.0-17.0) g/dL Hct 33.3 L (39.6-50.0) % MCV 103.1 H (80.0-97.0) fL MCH 34.4 H (27.0-32.0) pg Plt Count 46 L (140-440) 10*3/uL Neutrophils # (Manual) 1.16 L (1.3-7.7) k/uL Lymphocytes # (Manual) 0.72 L (1.0-4.8) k/uL Chloride 108 H (98-107) mmol/L BUN 6 L (9-20) mg/dL Total Bilirubin 1.4 H (0.2-1.3) mg/dL AST 126 H (17-59) U/L ALT 101 H (4-49) U/L Albumin 3.2 L (3.5-5.0) g/dL Assessment and Plan (1) Abdominal pain Narrative/Plan: 48-year-old male presenting with recurrent abdominal pain who was recently admitted and diagnosed with pancreatitis with elevated amylase and lipase that were normal the next day with no CT evidence of pancreatitis. Had previous history of alcohol pancreatitis about 10 years ago. Patient now without any criteria for pancreatitis as there is no elevation in amylase and lipase, no repeat CT has been done. Has some elevation in his LFTs with a normal bilirubin. Unclear etiology of abdominal pain may be secondary to his recent diagnosis of pancreatitis, unknown etiology possibly from previous history of alcohol abuse. Patient denies any new medications. Abdominal ultrasound to be ordered to evaluate gallbladder, which was with no acute findings. Current Visit: Yes Status: Acute Code(s): R10.9 - UNSPECIFIED ABDOMINAL PAIN SNOMED Code(s): 71736487 (2) Elevated LFTs Narrative/Plan: Elevated LFTs likely secondary to underlying liver disease secondary to hepatitis C. Current Visit: Yes Status: Acute Code(s): R79.89 - OTHER SPECIFIED ABNORMAL FINDINGS OF BLOOD CHEMISTRY SNOMED Code(s): 902761050 (3) Pancytopenia Narrative/Plan: Likely secondary to underlying liver disease Current Visit: Yes Status: Acute Code(s): D61.818 - OTHER PANCYTOPENIA SNOMED Code(s): 804351824 (4) Hepatitis C Narrative/Plan: Patient reports he was diagnosed with hepatitis C at age of 25 and has never been treated. Hepatitis C antibodies, RNA and reflex to genotype ordered. Outpatient follow-up with gastroenterology. Current Visit: Yes Status: Acute Code(s): B19.20 - UNSPECIFIED VIRAL HEPATITIS C WITHOUT HEPATIC COMA SNOMED Code(s): 52907825 Plan: 1. Continue symptomatic and supportive care 2. Pain medication as needed 3. CBC, CMP, acute hepatitis panel ordered, hepatitis C RNA 4. Gallbladder ultrasound ordered and reviewed no acute findings 5. Advance to low-fat diet 6. Recommend outpatient follow-up with gastroenterology to follow-up on hepatitis C, likely underlying liver disease Thank you for this consultation, patient cleared for discharge if tolerating regular diet. Dr. Jovi Garcia I agree with the dictator's note, documented as a scribe by Fanta Chapman.
[2024-11-02 10:11] LABS: ALT 101 U/L (4-49); AST 126 U/L (17-59); Albumin 3.2 g/dL (3.5-5.0); Alkaline Phosphatase 85 U/L (38-126); Total Protein 6.5 g/dL (6.3-8.2)
[2024-11-02 10:13] LABS: Bilirubin, Delta 0.5 mg/dL (0.0-0.2)
--- NOTE | 2024-11-02 12:49 | HP ---
HISTORY AND PHYSICAL CHIEF COMPLAINT: Abdominal pain. HISTORY OF PRESENT ILLNESS: This 48-year-old gentleman with a past history of multiple medical problems including DVT, was admitted with acute pancreatitis. The patient was discharged yesterday, but apparently, the patient drank some coffee, slushy, and Mountain Dew and the patient had some pain in the epigastrium radiating and the patient came to [facility], admitted for further evaluation and treatment. The initial lipase and amylase was normal. Gastroenterology consultation in progress and there is no history of fever, rigors or chills at this time. PAST MEDICAL HISTORY: History of recent pancreatitis, history of DVT. Rest of history and chart is also reviewed. HOME MEDICATIONS: Reviewed, include Desyrel. Dose and rest of medications reviewed. ALLERGIES: None known. FAMILY HISTORY: No history of heart disease or strokes in family. SOCIAL HISTORY: History of smoking, vaping. REVIEW OF SYSTEMS: A 14-point review of systems is negative except as mentioned earlier. PHYSICAL EXAMINATION: VITAL SIGNS: Pulse 77, blood pressure 130/90, and respirations 18. HEENT: Conjunctivae normal. NECK: No JVD. CARDIOVASCULAR: S1, S2. RESPIRATIONS: Breath sounds diminished at the bases. Scattered rhonchi. ABDOMEN: Soft, mild diffuse tenderness. No guarding. No rigidity. LEGS: No edema. NERVOUS SYSTEM: No focal deficits. LABORATORY DATA: Reviewed. ASSESSMENT: 1. Abdominal pain, possible acute gastritis. 2. History of recent acute pancreatitis. 3. History of deep vein thrombosis. 4. History of factor V Leiden deficiency. 5. Hypertension. 6. Remote history of EtOH. 7. ADD. 8. ADHD RECOMMENDATIONS: This 48-year-old gentleman presented with multiple complex medical issues. We will monitor the patient closely. I would recommend to continue current proton pump inhibitors. I would also recommend resume the home medications and also bland food as well as possibly only water per mouth. Closely follow with Gastroenterology. Further recommendations to follow. MMODL / IJN: [id number] / MTDD
[2024-11-02 14:54] VITALS: BP 126/75; PULSE 47; RESP 16; TEMP 97.7
[2024-11-02 15:27] LABS: Hepatitis A Antibody IgM Nonreactive (Nonreactive); Hepatitis C IgG Antibody Reactive (Nonreactive)
[2024-11-02 17:03] LABS: Hepatitis B Surface Antigen Conf_React
== END 2024-11-02 15:49 | disposition home or self-care (01) ==
LOC: EC 22:23 → 1SOBS 11-01 05:33
PROVIDERS: ADMIT Internal Medicine; ATTEND Internal Medicine
DX: R10.9 Unspecified abdominal pain (principal); R74.8 Abnormal levels of other serum enzymes; B19.20 Unspecified viral hepatitis C without hepatic coma; D61.818 Other pancytopenia; D68.51 Activated protein C resistance; F25.9 Schizoaffective disorder, unspecified; F31.9 Bipolar disorder, unspecified; F90.9 Attention-deficit hyperactivity disorder, unspecified type; I10 Essential (primary) hypertension; K85.90 Acute pancreatitis without necrosis or infection, unspecified; Z79.01 Long term (current) use of anticoagulants; Z79.82 Long term (current) use of aspirin; Z79.899 Other long term (current) drug therapy; Z86.718 Personal history of other venous thrombosis and embolism
CPT/HCPCS: 96374 ×3; 96375 ×2; 96376 ×3; 96361; 99285; 36415; 93005; 80053 ×2; 80074; 82150 ×2; 82248; 83605; 83690 ×2; 85025 ×2; 85610; 85730; 81003; 76705; G0378 ×2; J2405; J1171 ×3; J2470 ×2; J1308